=== PATIENT | male | born 1950 | race Caucasian/White ===

== ENCOUNTER 2020-05-28 12:58 | Outpatient (CLI) | payer MEDICARE, SELFPAY ==
[2020-05-28 13:45] LABS: Hemoglobin A1C 7.8 % (<5.7)
== END 2020-05-28 12:59 | disposition home or self-care (01) ==
LOC: CHSLAB 13:00
PROVIDERS: PCP Family Medicine; Visit Provider Family Medicine
DX: E11.9 Type 2 diabetes mellitus without complications (principal)
CPT/HCPCS: 36415; 83036

== ENCOUNTER 2020-08-26 12:48 | Outpatient (CLI) | payer MEDICARE, SELFPAY ==
[2020-08-26 13:06] LABS: Hemoglobin A1C 6.1 % (<5.7)
== END 2020-08-26 12:49 | disposition home or self-care (01) ==
LOC: CHSLAB 12:50
PROVIDERS: PCP Family Medicine; Visit Provider Family Medicine
DX: E11.9 Type 2 diabetes mellitus without complications (principal)
CPT/HCPCS: 36415; 83036

== ENCOUNTER 2020-11-26 07:11 | Emergency (ER) | payer MEDICARE, SELFPAY ==
[2020-11-26] VITALS (28 sets, daily range): BP systolic 136–179; BP diastolic 78–103; PULSE 91–108; RESP 14–18; TEMP 36.6; O2SAT 88–99
--- NOTE | ~2020-11-26 | CT_ITS ---
EXAMINATION: CT abdomen pelvis wo con DATE: 11/26/2020 10:14 INDICATION: Generalized abdominal pain. Vomiting. Nausea. TECHNIQUE: Computed tomography (CT) of the abdomen and pelvis was performed without intravenous contr ast. Automated exposure control and iterative reconstruction technique were employed. The dose-length product was 1220.54 mGy-cm. COMPARISON: None. FINDINGS: The visualized portions of the lung bases demonstrate mild atelectasis. There is mild emphy sema. No pleural effusion. The heart size is normal. No pericardial effusion. There is a 5 mm cyst in the liver. There is a gallstone in the gallbladder, which is normal in size. Calcifications in the s pleen are consistent with old granulomatous disease. There is fat stranding and trace fluid around th e pancreas, consistent with pancreatitis. Right adrenal gland is normal. There is a 3.2 cm mass in le ft adrenal gland measuring low-attenuation, consistent with an adenoma. There are cysts in the kidney s measuring up to 2.5 cm on the right. There is cortical thinning of the kidneys. The prostate is mil dly enlarged. There is diverticulosis of the colon without evidence of diverticulitis. There are no d ilated loops of bowel. The appendix is normal. There are no pathologically enlarged lymph nodes. Ther e is mild thoracolumbar spondylosis. IMPRESSION: 1. Acute interstitial pancreatitis. 2. Cholelithiasis. Reviewed, dictated and finalized at location A. GENCY MEDICINE SPECIALIST
[2020-11-26] MEDS: ONDANSETRON INJ 4 MG/2 ML VIAL IV PUSH (07:54)
[2020-11-26] MEDS: HYDROmorphone HCL INJ (*CRX) 2 MG/ML VIAL 1 MG IV PUSH (07:55)
[2020-11-26 08:42] LABS: Basophils Absolute Auto 0.05 K/mm3 (0.00-0.10); Basophils Percent Auto 0.4 % (0.0-1.0); Eosinophils Absolute Auto 0.54 K/mm3 (0.02-0.50); Eosinophils Percent Auto 3.9 % (1.0-6.0); Hematocrit 39.3 % (37.0-46.0); Hemoglobin 12.7 g/dL (12.4-15.3); Immature Granulocyte Percent A 0.7 % (0.0-0.0); Lymphocytes Percent Auto 5.8 % (18.0-42.0); Mean Corpuscular HGB Conc 32.3 g/dL (32.0-36.0); Mean Corpuscular Hemoglobin 30.8 pg (27.0-31.0); Mean Corpuscular Volume 95.4 fL (78.0-102.0); Monocytes Absolute Auto 0.59 K/mm3 (0.10-0.90); Monocytes Percent Auto 4.3 % (2.0-11.0); Neutrophils Absolute Auto 11.7 K/mm3 (1.7-7.2); Neutrophils Percent Auto 84.9 % (50.0-70.0); Platelet Count Result 242 K/mm3 (150-420); Red Blood Count 4.12 M/mm3 (4.70-6.10); Red Cell Distribution Width 13.8 % (11.6-14.4); White Blood Count 13.8 K/mm3 (4.8-10.8)
[2020-11-26 08:57] LABS: Alanine Aminotransferase 19 U/L (16-63); Albumin Level 3.1 g/dL (3.4-5.0); Alkaline Phosphatase 56 U/L (46-116); Anion Gap 7 mmol/L (8-16); Aspartate Amino Transferase 12 U/L (15-37); Bilirubin,Total 0.3 mg/dL (0.00-1.00); Blood Urea Nitrogen 32 mg/dL (7-18); Calcium 8.6 mg/dL (8.5-10.1); Carbon Dioxide 27 mmol/L (21-32); Chloride 107 mmol/L (98-108); Estimated CRCL calculation 22 ml/min; Estimated Glomerular Filt Rate 17; Glucose 150 mg/dL (70-99); Osmolality Calculated 301 mOsm/kg (285-295); Potassium 4.5 mmol/L (3.5-5.1); Sodium 141 mmol/L (136-145); Total Protein 6.4 g/dL (6.4-8.2)
[2020-11-26 09:03] LABS: CRP 1.4 mg/dL (0.0-0.9)
[2020-11-26 09:26] LABS: Lipase 18416 U/L (73-393)
[2020-11-26 09:43] LABS: Erythrocyte Sedimentation Rate 33 mm/hr (0-20)
[2020-11-26 10:17] LABS: BNP 143 pg/mL (0-100)
[2020-11-26] MEDS: SODIUM CHLORIDE 0.9% IV 1,000 ML 500 ML IV CONT (10:32)
--- NOTE | 2020-11-26 11:42 | PC.NURSE ---
NO CHANGE IN PT STATUS. PT REQUESTING TRANSFER TO [facility].
[2020-11-26 11:47] LABS: SARS-CoV-2 Ag Negative (Negative)
--- NOTE | 2020-11-26 11:57 | PC.NURSE ---
spouse to nurses station requesting pt be transferred [facility].
--- NOTE | 2020-11-26 12:02 | PC.NURSE ---
[facility] contacted for transfer.
--- NOTE | 2020-11-26 12:32 | ED.ABDPAIN ---
HPI - Abdominal Pain General Chief Complaint: Abdominal Pain Stated Complaint: abd pain vomitting Time Seen by Provider: 11/26/20 07:20 Source: patient Mode of arrival: ambulatory Limitations: no limitations History of Present Illness HPI narrative: Patient says he has abd abdominal pain, moderately severe since 2am. THis has been associated with nausea. He comes in now because of continuing pain, and nausea, both which seem to becoming worse. MD elicited complaint: abdominal pain Pain Consistency: constant Location: periumbilical Severity: moderate Quality: stabbing Migration to: no migration Exacerbating factors: nothing Relieving factors: nothing Associated symptoms: denies other symptoms Related Data Home Medications Medication Instructions Recorded Confirmed allopurinol 100 mg tablet 100 mg PO BID 11/27/19 11/26/20 fenofibrate nanocrystallized 145 145 mg PO DAILY 11/27/19 11/26/20 mg tablet niacin 500 mg tablet 1,000 mg PO DAILY 11/27/19 11/26/20 aspirin 325 mg tablet 325 mg PO DAILY 08/26/20 11/26/20 lansoprazole 15 mg capsule,delayed 15 mg PO DAILY 08/26/20 11/26/20 release metformin 1,000 mg tablet 1,000 mg PO BID 08/26/20 11/26/20 Lactobacillus rhamnosus GG 2 cap PO DAILY 11/26/20 11/26/20 [Culturelle] carvedilol 12.5 mg PO BID 11/26/20 11/26/20 glipizide 10 mg PO DAILY 11/26/20 11/26/20 losartan 75 mg PO DAILY 11/26/20 11/26/20 omega-3 fatty acids-vitamin E 1 cap PO DAILY 11/26/20 11/26/20 [Fish Oil] vitamin E mixed [Natural Vitamin E] 400 unit PO DAILY 11/26/20 11/26/20 Allergies Allergy/AdvReac Type Severity Reaction Status Date / Time No Known Allergies Allergy Verified 11/26/20 14:32 Review of Systems Constitutional: Constitutional: Reports no additional constitutional complaints Eyes: Eyes: Reports no additional eye complaints ENT: Reports system reviewed and no additional complaints, except as documented Cardiovascular: Cardiovascular: Reports no additional cardiovascular complaints Respiratory: Respiratory: Reports no additional respiratory complaints Gastrointestinal: Gastrointestinal: Reports no additional gastrointestinal complaints Genitourinary: Genitourinary: Reports no additional male genitourinary complaints Musculoskeletal: Musculoskeletal: Reports no additional musculoskeletal complaints Integumentary/Breasts: Skin/Breast: Reports system reviewed and no additional complaints, except as docu Neurologic: Reports system reviewed and no additional complaints, except as documented Psychiatric: Psychiatric: Reports no additional psychiatric complaints Endocrine: Endocrine: Reports no additional endocrine complaints Hematologic/Lymphatic: Hematologic/Lymphatic: Reports no additional hematologic/lymphatic complaints Allergic/Immunologic: Allergic/Immunologic: Reports no additional allergic/immunologic complaints PMFSH Past Medical History Medical History Adenoma of left adrenal gland 3.2 cm mass of the left adrenal gland consistent with adenoma noted on CT of the abdomen and pelvis on 11/26/2020. Benign mass of right adrenal gland Status post resection in March 2001. Chronic kidney disease, stage 4 (severe) He is a patient of Dr. Mckeon in [place]. Gastroesophageal reflux disease Gout Hyperlipidemia Hypertension Right adrenal mass Resection March 2001 Type 2 diabetes mellitus Surgical History Surgical History History of total adrenalectomy (~03/2001) Right adrenal gland resection with benign pathology. History of ventral hernia repair (~10/2006) Family History Family History Mother Small intestine cancer Father Colon cancer Social History Social History Social History: The patient lives in [place]. Retired. He is and he and his have 3 joseph
--- NOTE | 2020-11-26 12:44 | PC.NURSE ---
Pt to go to [facility] room 247.
== END 2020-11-26 13:40 | disposition short-term general hospital (02) ==
PROVIDERS: Emergency Provider Emergency Medicine; PCP Family Medicine
DX: K85.00 Idiopathic acute pancreatitis without necrosis or infection (principal); E78.5 Hyperlipidemia, unspecified; I10 Essential (primary) hypertension; E11.9 Type 2 diabetes mellitus without complications; Z87.891 Personal history of nicotine dependence
CPT/HCPCS: 36415; 74176; 80053; 83690; 83880; 85025; 85652; 86140; 87426; 96361; 96374; 96375; 99285; C9803; J1170; J2405; J7030

== ENCOUNTER 2020-11-26 14:10 | Inpatient (IN) | payer MEDICARE, SELFPAY ==
--- NOTE | ~2020-11-26 | XR_ITS ---
EXAMINATION: XR chest 1V portable EXAM DATE: 12/02/2020 05:33 INDICATION: Respiratory failure. TECHNIQUE: Portable AP frontal chest x-ray was obtained. Comparison is made to prior examination from 12/01/2020. FINDINGS: Endotracheal tube tip is 4-5 centimeters above the birgit. There is a nasogastric tube see n with tip collimated off the study, but below the left hemidiaphragm. Hazy appearance to the lower lung zones could indicate layering pleural effusions right greater than left, with adjacent atelectasis. Superimposed edema or pneumonia also possible. There is no pneumotho rax suspected. The cardiomediastinal silhouette is prominent but magnified on this AP technique. Ther e are no osseous abnormalities identified. IMPRESSION: 1. Tubes in position. 2. Hazy lung zone opacity likely layering pleural effusions, adjacent atelectasis. 3. Pneumonia or edema not excludable. Reviewed, dictated and finalized at location A. NT DIRECTOR IMPRESSION: 1. Tubes in position. 2. Hazy lung zone opacity likely layering pleural effusions, adjacent atelecta sis. 3. Pneumonia or edema not excludable.
--- NOTE | ~2020-11-26 | XR_ITS ---
EXAMINATION: XR chest 1V portable DATE: 11/26/2020 17:21 INDICATION: Hypoxia. Hypertension. TECHNIQUE: frontal view of the chest was obtained. COMPARISON: Chest radiograph dated 12/29/2016 FINDINGS: Intensity is mild eventration along the right hemidiaphragm. Focal airspace opacity medial right lung base. Calcified nodules at the left apex consistent with old granulomatous disease. No other airspac e opacities, pulmonary edema, pleural effusion or pneumothorax. The cardiomediastinal silhouette is n ormal. There are bridging osteophytes at multiple levels in the spine, consistent with diffuse idiopa thic skeletal hyperostosis (DISH). IMPRESSION: 1. Focal airspace opacity medial right lung base which could represent atelectasis or pneumonia. Reviewed, dictated and finalized at location A. NGUAL ADMINISTRATIVE ASSISTANT IMPRESSION: 1. Focal airspace opacity medial right lung base which could represent atelecta sis or pneumonia.
--- NOTE | ~2020-11-26 | XR_ITS ---
EXAMINATION: XR chest ET placement INDICATION: Endotracheal and nasogastric tube insertion TECHNIQUE: Portable AP chest at 1146 hours COMPARISON: 09/26/2021 FINDINGS: An endotracheal tube has been inserted which ends 3.8 cm above the birgit. A nasogastric tu be has been inserted which is followed as far as the stomach. Its tip is beyond the inferior margin o f the radiograph. There are diffuse airspace opacities throughout the lungs with interval worsening in the right perihilar region. Cardiomegaly is noted. There is no pleural effusion or pneumothorax. IMPRESSION: 1. Diffuse lung disease with interval worsening, consistent with pneumonia and/or pulmonary edema. 2. Cardiomegaly. 3. Endotracheal and nasogastric tubes inserted in adequate position. Reviewed, dictated and finalized at location A. OMER COMPLAINT SERVICE SUPERVISOR IMPRESSION: 1. Diffuse lung disease with interval worsening, consistent with pneumonia and/ or pulmonary edema. 2. Cardiomegaly. 3. Endotracheal and nasogastric tubes inserted in adequate position.
--- NOTE | ~2020-11-26 | US_ITS ---
EXAMINATION: US venous doppler [facility] DATE: 11/29/2020 15:15 INDICATION: Lower limb swelling TECHNIQUE: Gill scale images without and with compression and Doppler images of the bilateral lower e xtremity veins were obtained. COMPARISON: None FINDINGS: The right common femoral vein, profunda femoral vein, femoral vein, popliteal vein, peroneal trunk, p osterior tibial veins, and greater saphenous vein are patent. The left common femoral vein, profunda femoral vein, femoral vein, popliteal vein, peroneal trunk, po sterior tibial veins, and greater saphenous vein are patent. Evaluation of the left calf veins is clayton ewhat limited due to patient positioning and sedation. IMPRESSION: 1. Patent bilateral lower extremity veins. No evidence of deep venous thrombosis. Reviewed, dictated and finalized at location A. OPEDICALLY IMPAIRED TEACHER IMPRESSION: 1. Patent bilateral lower extremity veins. No evidence of deep venous thrombosi s.
--- NOTE | ~2020-11-26 | CT_ITS ---
EXAMINATION: CT brain wo con EXAM DATE: 11/29/2020 13:01 INDICATION: Altered mental status. TECHNIQUE: Spiral CT of the head was performed without contrast. Axial, coronal and sagittal images were reviewed. The dose-length product (DLP) for this examination was 605.33 mGy-cm. The exposure w as tailored according to patient size, and iterative reconstruction (ASIR) was used as additional dos e reduction technique. There is no prior study for comparison. FINDINGS: There is no acute intraparenchymal hemorrhage. No evidence of intraparenchymal brain mass lesion. No evidence of acute infarction. Please note that initial head CT has limited sensitivity f or small or acute infarctions. There is mild periventricular and subcortical hypodensity, nonspecific but probably related to small vessel ischemic disease. There is mild prominence of the sulci and v entricles related to cerebral atrophy. There is intracranial carotid arteriosclerosis. There are n o extra-axial collections. There is no mass effect or midline shift. The orbits are unremarkable. Soft tissue is unremarkable. Moderate ethmoid mucoperiosteal thickening. Trace fluid in the maxillar y sinuses. IMPRESSION: 1. No acute intracranial findings. 2. Chronic age related findings. 3. Moderate ethmoid mucoperiosteal thickening. Reviewed, dictated and finalized at location B. LAPPER
--- NOTE | ~2020-11-26 | US_ITS ---
EXAMINATION: US renal BI DATE: 11/27/2020 11:23 INDICATION: Worsening renal function. TECHNIQUE: Multiple ultrasound grayscale images of the kidneys were obtained. COMPARISON: CT abdomen and pelvis 11/26/2020 FINDINGS: The right kidney measures 9.7 x 6.5 x 6.8 cm. The left kidney measures 10.4 x 6.0 x 6.8 cm. The kidne ys demonstrate increased parenchymal echogenicity. There are poorly visualized cysts in the kidneys m easuring up to 2.6 cm on the right. There is no hydronephrosis. The bladder is decompressed. IMPRESSION: 1. Increased renal parenchymal echogenicity, consistent with nonspecific nephropathy. No hydronephro sis. Reviewed, dictated and finalized at location A. LEAD IMPRESSION: 1. Increased renal parenchymal echogenicity, consistent with nonspecific nephr opathy. No hydronephrosis.
--- NOTE | ~2020-11-26 | XR_ITS ---
EXAMINATION: XR abdomen NG/feed tube insert DATE: 11/29/2020 12:13 INDICATION: Nasogastric tube placement. TECHNIQUE: A supine view of the abdomen was obtained. COMPARISON: CT abdomen and pelvis 11/26/2020 FINDINGS: The lower abdomen and right lateral aspect of the abdomen are excluded. The nasogastric tub e tip is in the stomach. IMPRESSION: 1. Nasogastric tube tip in the stomach. Reviewed, dictated and finalized at location A. FIRM CONSULTANT
--- NOTE | ~2020-11-26 | XR_ITS ---
XR chest 1V portable 12/01/2020 06:12 Indication: Respiratory failure Procedure: AP portable chest Comparison: Comparison to multiple prior studies sequentially, with oldest reviewed study dated 12/29. Findings: Endotracheal tube tip 4.5 cm above the birgit. NG tube in the stomach. Borderline heart siz e. Bilateral perihilar airspace disease. There is a left pleural effusion. No pneumothorax. Impression: 1: Bilateral perihilar airspace disease which may represent edema or pneumonia. 2: Left pleural effusion. Reviewed, dictated and finalized at location A. RAL RESOURCES FACULTY MEMBER Impression: 1: Bilateral perihilar airspace disease which may represent edema or pneumonia. 2: Left pleural effusion.
--- NOTE | ~2020-11-26 | CT_ITS ---
EXAMINATION: CT chest abdomen pelvis wo con EXAM DATE: 11/29/2020 13:02 INDICATION: Sepsis, altered mental status. TECHNIQUE: Spiral CT of the chest, abdomen and pelvis was performed without contrast. Axial, posadas l and sagittal images were reviewed. Coronal maximum intensity pixel images of chest reviewed. The dose-length product (DLP) for this examination was 1910.98 mGy-cm. The exposure was tailored accordi ng to patient size (auto mA exposure control), and iterative reconstruction (ASIR) was used as additi onal dose reduction technique. Comparison is made to prior examination from 11/26/2020. FINDINGS: CHEST: Endotracheal and nasogastric tubes are in position. There are small bilateral pleural effusi ons. There is subsegmental bibasilar atelectasis, pneumonia not excludable. Some regions of interlobu lar septal thickening suspicious for mild pulmonary edema. Tracheobronchial tree is patent. There is no mediastinal, hilar or axillary lymphadenopathy. There is no pneumothorax. Heart normal in s ize. There is mild coronary arterial calcification, arterial sclerosis. ABDOMEN PELVIS: Again there is moderate amount of peripancreatic inflammation consistent with acute p ancreatitis. Development of trace perihepatic ascites and also some edema of the gallbladder wall lik delphine reactive. There is cholelithiasis. Amount gallbladder distention is unchanged. There is no nephr olithiasis or hydronephrosis. The prostate is unremarkable. The bladder is collapsed with Sandoval ca theter balloon anchor inside. There is no retroperitoneal or pelvic lymphadenopathy. There is mild scattered arteriosclerotic disease. The appendix is normal. The stomach and small bowel are unremarkable. There is mild sigmoid colonic diverticulosis. There is no adjacent inflammatory change to suggest diverticulitis. There is expecte d amount of colonic stool. No free intraperitoneal gas. There are no osteoblastic or osteolytic l esions identified. There is a right common femoral venous line. Compared to prior study, the pleural effusions and adjacent airspace disease most likely atelectasis have developed. The trace perihepatic fluid and indistinct gallbladder wall has also developed. IMPRESSION: 1. Development of small pleural effusions, adjacent subsegmental atelectasis. Suspect mild pulmonar y edema. Pneumonia not excludable. 2. Moderate peripancreatic inflammation, acute pancreatitis. Development of trace perihepatic ascite s and indistinct gallbladder wall probably reactive. 3. Mild sigmoid diverticulosis. 4. Tubes, line in position. Reviewed, dictated and finalized at location B. K PICKLER IMPRESSION: 1. Development of small pleural effusions, adjacent subsegmental atelectasis. Suspect mild pulmonary edema. Pneumonia not excludable. 2. Moderate peripancreatic inflammation, acute pancreatitis. Development of tr mary perihepatic ascites and indistinct gallbladder wall probably reactive. 3. Mild sigmoid diverticulosis. 4. Tubes, line in position.
--- NOTE | ~2020-11-26 | XR_ITS ---
XR chest 1V portable 11/30/2020 05:56 Indication: Respiratory failure Procedure: AP portable chest Comparison: 12/17/2015 Findings: The tracheal tube tip 5.9 cm above the birgit. Cardiomegaly. Mild interstitial edema. No si gnificant effusion or pneumothorax. Impression: 1: Cardiomegaly with mild interstitial edema, improved. Differential diagnosis includes pneumonia. Reviewed, dictated and finalized at location A. ET ASSEMBLER Impression: 1: Cardiomegaly with mild interstitial edema, improved. Differential diagnosis includes pneumonia.
--- NOTE | 2020-11-26 14:15 | ADMGEN ---
This patient, Thomas Rich, was admitted to Medical Room 247-. Patient/family oriented to hospital policies and general routines including ID bracelet, bed and alarms, visiting hours, pain management, procedures, bathroom and other care routines, personal items, smoking policy, room service/diet, and visiting hours. Information on how to activate the Rapid Response Team has been discussed. Patient/Family are encouraged to report perceived risks to care and to ask questions if they do not understand what they are told or what they should do.
[2020-11-26 15:07] VITALS: BP 172/87; PULSE 116; RESP 23; TEMP 36.5; O2SAT 98; BMI 32.8
[2020-11-26 15:38] VITALS: O2SAT 98
--- NOTE | 2020-11-26 16:30 | PM.IMHP ---
H&P: HPI History of Present Illness Date/Time: 11/26/20 16:30 Chief Complaint: Acute pancreatitis. Narrative: This is a 70-year-old male with type 2 diabetes mellitus, hypertension, dyslipidemia, and chronic kidney disease who is being directly admitted to the hospitalist service from the emergency department at the [facility] for further treatment and evaluation after he was found to have acute pancreatitis. Yesterday he ?had a hard time getting comfortable? with generalized abdominal discomfort followed by nausea, emesis x3, and dry heaves throughout the night. He was wakened from sleep at around 02:00 with severe pain in the periumbilical region which radiates somewhat into the left upper quadrant. It has been constant since the outset and seems to be worse with movement. He has not noticed any significant alleviating factors. As mentioned, a CT done at the outside facility showed acute interstitial pancreatitis and with further questioning he denies personal and family history of pancreatitis. Cholelithiasis was noted on imaging as well however he has no history of symptomatic gallstones. He consumes alcohol very rarely and on social occasions, and the last time he drank was maybe 1 beer a month or 2 ago. He has a history of dyslipidemia and to his knowledge he has never had any significant elevation in his triglycerides. Of note he was having difficulties controlling his blood pressures recently and was started on losartan 50 mg about 1 month ago which was recently up to 75 mg as his systolic blood pressures have been running in the 170s. At the time my evaluation he complains of continued pain, nausea, and frequent belching. He takes lansoprazole daily for chronic GERD and he has not noticed a change in those symptoms. No fever, chills, or sweats. He denies hematemesis. No melena or hematochezia. He had a normal bowel movement x2 this morning. Review of Systems Review of Systems: Narrative: Twelve systems were reviewed with pertinent positives and negatives as per HPI. Over the last week or so he has had some sinus congestion and runny nose. Mild cough which he attributes to the congestion and postnasal drip. Denies shortness of breath. No concerns for sleep apnea. No fever. No known exposure to those positive for COVID-19. Rapid COVID test was negative at outside facility today. He has noticed darker urine and decreased urine output over the past couple of days. His diabetes is well controlled with a recent hemoglobin A1c of 6.1% about 3 months ago. His fasting glucose is usually between 98 and 125. No blurry vision, polydipsia, or polyuria. Except as documented, all other systems were reviewed and are negative. PENDING SALE TO [facility] Past Medical History Medical History (Updated 11/26/20 @ 20:00 by Gaby Mead PA-C) Adenoma of left adrenal gland 3.2 cm mass of the left adrenal gland consistent with adenoma noted on CT of the abdomen and pelvis on 11/26/2020. Benign mass of right adrenal gland Status post resection in March 2001. Chronic kidney disease, stage 4 (severe) He is a patient of Dr. Mckeon in [place]. Gastroesophageal reflux disease Gout Hyperlipidemia Hypertension Right adrenal mass Resection March 2001 Type 2 diabetes mellitus Surgical History Surgical History (Updated 11/26/20 @ 19:59 by Gaby Mead PA-C) History of total adrenalectomy (~03/2001) Right adrenal gland resection with benign pathology. History of ventral hernia repair (~10/2006) Family History Family History Mother Small intestine cancer Father Colon cancer Social History Social History (Updated 11/26/20 @ 20:01 by Gaby Mead PA-C) Social History: The patient lives in [place]. Retired. He is and he and his have 3 adult sons. He was a has a 60 pack year smoking history and quit several years ago. No alcohol or illicit substance abuse
[2020-11-26 16:52] LABS: Triglycerides 282 mg/dL (<150)
[2020-11-26 16:53] LABS: Hemoglobin A1C 5.7 % (<5.7)
[2020-11-26] MEDS: MORPHINE SULFATE (*CRX) 2 MG/ML INJ IV PUSH (17:05)
[2020-11-26] MEDS: ONDANSETRON INJ 4 MG/2 ML VIAL IV PUSH ×2 (17:06→22:45)
[2020-11-26] MEDS: SODIUM CHLORIDE 0.9% IV 1,000 ML 150 ML IV CONT ×2 (17:06→23:47)
[2020-11-26 17:42] LABS: Glucose Point of Care 98 (65-105)
[2020-11-26 21:57] VITALS: PULSE 110
[2020-11-26] MEDS: allopurinoL 100 MG TABLET PO (21:57)
[2020-11-26] MEDS: carvediloL 12.5 MG TABLET PO (21:57)
[2020-11-26] MEDS: FAMOTIDINE 20 MG/2 ML VIAL IV PUSH (21:58)
[2020-11-26] MEDS: HYDROmorphone HCL INJ (*CRX) 1 MG/ML SYR 0.5 MG IV PUSH (21:58)
[2020-11-26 22:00] VITALS: BP 161/107; PULSE 125; RESP 16; TEMP 36.6; O2SAT 90
[2020-11-26 23:00] VITALS: BP 148/73; PULSE 112; RESP 20; TEMP 36.7; O2SAT 90
[2020-11-27] VITALS (7 sets, daily range): BP systolic 123–156; BP diastolic 68–87; PULSE 78–111; RESP 18; TEMP 36.5–36.6; O2SAT 88–97
[2020-11-27 00:06] LABS: Glucose Point of Care 85 (65-105)
[2020-11-27] MEDS: HYDROmorphone HCL INJ (*CRX) 1 MG/ML SYR 0.5 MG IV PUSH (02:35)
[2020-11-27 05:52] LABS: Basophils Absolute Auto 0.1 K/mm3 (0.0-0.1); Basophils Percent Auto 0.3 % (0.2-1.2); Eosinophils Percent Auto 0.3 % (0-4.4); Hematocrit 39.6 % (42.0-52.0); Hemoglobin 12.2 g/dL (14.0-18.0); Immature Granulocyte Absolute 0.16 K/mm3 (0.00-0.031); Immature Granulocyte Percent A 1.1 % (0-0.5); Lymphocytes Absolute Auto 0.37 K/mm3 (0.9-3.2); Lymphocytes Percent Auto 2.5 % (18.3-44.2); Mean Corpuscular HGB Conc 30.8 g/dl (32-36); Mean Corpuscular Hemoglobin 30.8 pg (26-34); Mean Platelet Volume 9.9 fl (7.4-10.4); Monocytes Percent Auto 6.9 % (2.6-8.5); Neutrophils Percent Auto 88.9 % (45.5-73.1); Platelet Count Result 191 k/mm3 (150-375); Red Blood Count 3.96 M/mm3 (4.6-6.20); White Blood Count 14.6 K/mm3 (4.5-10.0)
[2020-11-27 06:06] LABS: Alanine Aminotransferase 15 U/L (4-50); Albumin Level 3.3 g/dL (3.5-5.1); Alkaline Phosphatase 47 U/L (38-126); Anion Gap 6 mmol/L (8-16); Aspartate Amino Transferase 28 U/L (17-59); Bilirubin,Total 0.5 mg/dL (0.2-1.3); Blood Urea Nitrogen 46 mg/dL (9-20); Calcium 8.1 mg/dL (8.4-10.2); Carbon Dioxide 23 mmol/L (22-30); Chloride 113 mmol/L (98-107); Estimated CRCL calculation 16 ml/min; Estimated Glomerular Filt Rate 12; Glucose 81 mg/dL (75-110); Magnesium 1.6 mg/dL (1.6-2.3); Potassium 5.4 mmol/L (3.4-5.0); Sodium 142 mmol/L (137-145)
[2020-11-27 06:29] LABS: Lipase 3190 U/L (23-300)
[2020-11-27 07:26] LABS: Glucose Point of Care 73 (65-105)
[2020-11-27 07:26] LABS: Glucose Point of Care 78 (65-105)
[2020-11-27 08:13] LABS: Glucose Point of Care 76 (65-105)
[2020-11-27] MEDS: MAGNESIUM SULF 2 GM/WATER 50ML 2 GM/50 ML BAG IVPB (08:28)
[2020-11-27] MEDS: DEXTROSE 5%/0.9% SOD CHL 1,000 ML 125 ML IV CONT (08:28)
[2020-11-27] MEDS: allopurinoL 100 MG TABLET PO ×2 (08:29→21:47)
[2020-11-27] MEDS: FAMOTIDINE 20 MG/2 ML VIAL IV PUSH ×2 (08:29→21:45)
[2020-11-27] MEDS: carvediloL 12.5 MG TABLET PO ×2 (08:29→21:45)
[2020-11-27] MEDS: ACIDOPHILUS/BULGARICUS CHEWABLE TABLET 2 TABLET PO (08:29)
--- NOTE | 2020-11-27 09:45 | PM.IMPN ---
Progress Note: A&P Assessment and Plan (1) Acute pancreatitis: Qualifiers: Acute pancreatitis complication: unspecified Pancreatitis type: idiopathic Qualified Code(s): K85.00 - Idiopathic acute pancreatitis without necrosis or infection Code(s): K85.90 - Acute pancreatitis without necrosis or infection, unspecified Status: Acute Assessment and Plan: Patient presented to outside hospital with abdominal pain, nausea/vomiting; CT abd/pelvis demonstrated evidence consistent with acute interstitial pancreatitis. Lipase improved nicely from 18,416 to 3,190 this morning. Continue bowel rest and ice chips for now. Recheck lipase in AM. Continue supportive care with IV hydration, pain control, antiemetics. Avoid narcotics due to lethargy. (2) Lethargy: Code(s): R53.83 - Other fatigue Status: Acute Assessment and Plan: Patient is very sleepy this morning and having trouble staying awake. Nursing describes this is a change compared to yesterday. Vitals are stable however. IV narcotics last given early this morning 0230. Suspect this could be contributing to this change in combination with his worsening renal function. Obtain ABG, ammonia level. Give narcan x 1 and monitor. Monitor renal function. Avoid narcotic medications. Monitor vitals closely. (3) Cholelithiasis: Qualifiers: Cholelithiasis location: other site Biliary obstruction: without biliary obstruction Qualified Code(s): K80.80 - Other cholelithiasis without obstruction Code(s): K80.20 - Calculus of gallbladder without cholecystitis without obstruction Status: Acute Assessment and Plan: A gallstone in the gallbladder is noted on CT. Bilirubin and LFTs are within normal limits thus biliary obstruction does not appear to be contributing at this point. (4) Acute on chronic kidney failure: Qualifiers: Acute renal failure type: unspecified Chronic kidney disease stage: unspecified stage Qualified Code(s): N17.9 - Acute kidney failure, unspecified; N18.9 - Chronic kidney disease, unspecified Code(s): N17.9 - Acute kidney failure, unspecified; N18.9 - Chronic kidney disease, unspecified Status: Acute Assessment and Plan: He is a patient of Dr Mckeon in [place]. He is not on dialysis. He is unsure what his baseline creatinine is, requested to obtain records for reference. Cr increased overnight and up to 4.9 this morning. May be related to poor oral intake at home. Obtain renal ultrasound. Appreciate nephrology input in this setting. (5) Hypertension: Qualifiers: Hypertension type: essential hypertension Qualified Code(s): I10 - Essential (primary) hypertension Code(s): I10 - Essential (primary) hypertension Status: Chronic Assessment and Plan: Some elevated BPs last evening likely secondary to pain and missed medications, now better controlled this AM last 123/68. Continue home carvedilol. Home losartan held due to renal function. He was recently taken off of amlodipine due to LE swelling and started on losartan in last 1 mo. Monitor BP and adjust treatment as needed. (6) DM2 (diabetes mellitus, type 2): Qualifiers: Diabetes mellitus long term care social worker insulin use: without long term care social worker use Diabetes mellitus complication status: without complication Qualified Code(s): E11.9 - Type 2 diabetes mellitus without complications Code(s): E11.9 - Type 2 diabetes mellitus without complications Status: Acute Assessment and Plan: Hgb A1c is 5.7%. Home metformin held due to worsening renal function. Continue to monitor with accu-cheks and adjust treatment as needed, cover with SSI. (
[2020-11-27 10:17] LABS: Ammonia < 9 umol/L (9-30)
[2020-11-27 11:04] LABS: Alveolar/Arterial O2 Gradient 68.9 mmHg; Base Excess ABG -9.3 mEq/l (+/-2.0); Carboxyhemoglobin 0.7 % THb (0-2.0); Fractional Inspired Oxygen 28 %; HCO3 ABG 19.8 mEq/l (22.0-26.0); Oxygen Content ABG 15.1 %vol (16.0-22.0); Oxyhemoglobin 87.1 % THb (90.0-100.0); PCO2 ABG 58.1 mmHg (35.0-45.0); PO2 ABG 62.2 mmHg (80.0-100.0); PO2 FiO2 Ratio Arterial Blood 2.22 %; Reduced Hemoglobin 12.2 %THb (0-5.0); Total Hemoglobin 12.3 g/dL (12.0-18.0)
[2020-11-27 11:06] LABS: pH ABG 7.151 (7.350-7.450)
[2020-11-27 11:07] LABS: Device NASAL CANNULA; Modified Allen's Test Pass; Oxygen Saturation ABG 84.3 % (95.0-100.0); Site Drawn LEFT RADIAL
[2020-11-27] MEDS: NALOXONE HCL 0.4 MG/ML VIAL IV PUSH (11:28)
[2020-11-27 11:44] LABS: Glucose Point of Care 85 (65-105)
[2020-11-27 15:41] LABS: Alanine Aminotransferase 17 U/L (4-50); Albumin Level 3.4 g/dL (3.5-5.1); Alkaline Phosphatase 46 U/L (38-126); Anion Gap 8 mmol/L (8-16); Aspartate Amino Transferase 30 U/L (17-59); Bilirubin,Total 0.6 mg/dL (0.2-1.3); Blood Urea Nitrogen 52 mg/dL (9-20); Calcium 8.5 mg/dL (8.4-10.2); Carbon Dioxide 20 mmol/L (22-30); Chloride 111 mmol/L (98-107); Estimated CRCL calculation 14 ml/min; Estimated Glomerular Filt Rate 10; Glucose 115 mg/dL (75-110); Magnesium 2.1 mg/dL (1.6-2.3); Potassium 5.3 mmol/L (3.4-5.0); Sodium 139 mmol/L (137-145)
[2020-11-27 15:54] LABS: Alveolar/Arterial O2 Gradient 6.3 mmHg; Base Excess ABG -9.4 mEq/l (+/-2.0); Carboxyhemoglobin 0.6 % THb (0-2.0); Fractional Inspired Oxygen 21 %; HCO3 ABG 18.1 mEq/l (22.0-26.0); Methemoglobin ABG 0.3 %THb (0-1.5); Oxygen Content ABG 15.7 %vol (16.0-22.0); Oxygen Saturation ABG 94.9 % (95.0-100.0); PCO2 ABG 45.8 mmHg (35.0-45.0); PO2 ABG 88.6 mmHg (80.0-100.0); PO2 FiO2 Ratio Arterial Blood 4.22 %; Reduced Hemoglobin 5.1 %THb (0-5.0); Total Hemoglobin 11.8 g/dL (12.0-18.0)
[2020-11-27 15:56] LABS: Device ROOM AIR; Modified Allen's Test Pass; Site Drawn RIGHT RADIAL; pH ABG 7.214 (7.350-7.450)
[2020-11-27] MEDS: LACTATED RINGERS 1,000 ML 999 ML IV CONT (16:04)
[2020-11-27 17:12] LABS: Add Urine Microscopic? YES; Amorphous Sediment Urine Few; Appearance Urine Cloudy (Clear); Bacteria Urine 2+ /hpf; Bilirubin Urine Negative (Negative); Blood Urine 2+ (Negative); Color Urine Yellow (Yellow); Glucose Urine UA 1+ mg/dL (Negative); Ketones Urine Negative (Negative); Leukocyte Esterase Ur Negative LEU/UL (Negative); Mucus Urine Rare /lpf; Nitrate Urine Negative (Negative); Protein Urine 3+ mg/dL (Negative); Specific Grav Ur 1.018 (1.001-1.035); Urobilinogen Urine Negative mg/dL (<2.0); WBC Urine 21-30 /hpf
[2020-11-27 17:27] LABS: Glucose Point of Care 103 (65-105)
[2020-11-27] MEDS: LACTATED RINGERS 1,000 ML 125 ML IV CONT (17:30)
[2020-11-27 17:54] LABS: Lactic Acid Reflex 0.6 mmol/L (0.7-2.1)
--- NOTE | 2020-11-27 18:08 | P.CONNP_ITS ---
Assessment and Plan Assessment and plan (1) MARNI (acute kidney injury): Code(s): N17.9 - Acute kidney failure, unspecified Status: Acute Assessment and Plan: * as noted by trend of labs in the last 24 hours * suspect prerenal factors and pancreatitis to blame * concerning that his UOP has dropped off * follow trend of repeat labs and UOP * check urine lytes and eosinophils as well as renal ultrasound (2) Chronic kidney disease, stage 4 (severe): Code(s): N18.4 - Chronic kidney disease, stage 4 (severe) Status: Chronic Assessment and Plan: * baseline creatinine ~ 2.2 - 2.4mg/dl * presumably due to diabetes and hypertension (3) Acute pancreatitis: Qualifiers: Acute pancreatitis complication: unspecified Pancreatitis type: idiopathic Qualified Code(s): K85.00 - Idiopathic acute pancreatitis without necrosis or infection Code(s): K85.90 - Acute pancreatitis without necrosis or infection, unspecified Status: Acute Assessment and Plan: * findings seem consistent - abdominal pain, nausea/vomiting and results of CT abd/pelvis * lipase better but still quite elevated * supportive therapy with bowel rest and NPO status. * IV hydration * pain control (4) Lethargy: Code(s): R53.83 - Other fatigue Status: Acute Assessment and Plan: * due to pain medications versus MARNI/ARF versus both? * follow trend of mentation * consider head CT is continue to decline or worsens (5) Hypertension: Qualifiers: Hypertension type: essential hypertension Qualified Code(s): I10 - Essential (primary) hypertension Code(s): I10 - Essential (primary) hypertension Status: Chronic Assessment and Plan: * relatively stable hemodynamics * follow trend (6) DM2 (diabetes mellitus, type 2): Qualifiers: Diabetes mellitus complication status: without complication Diabetes mellitus exterminator termite insulin use: without mcfp use Qualified Code(s): E11.9 - Type 2 diabetes mellitus without complications Code(s): E11.9 - Type 2 diabetes mellitus without complications Status: Acute Assessment and Plan: * follow accuchecks * on SSI Long and extensive discussion (> 20 minutes) with patient's by phone regarding his current clinical status and his worsening renal dysfunction -- I voiced my concerns that given his acute illness and declining urine output, the patient require renal replacement therapy/dialysis particularly if he runs into problems with hyperkalemia, volume overload, severe acidosis...etc. She seemed to voice understanding to this possibility. Will continue to follow. History of Present Illness Reason for Consult Consult date: 11/27/20 Reason for consult: acute renal failure (on chronic kidney disease) Chief Complaint Chief complaint: Acute pancreatitis History of Present Illness Narrative: Almost all the information I have obtained is from review of the electronic medical record as well as discussion with the nurses and physicians involved in the patient's care as I am unable to get any history from the patient due to his significant lethargy. The patient is a 70-year-old male with a past medical history as noted below who was directly admitted to [facility] from [facility] for further treatment/evaluation of acute pancreatitis. The day prior to admission the patient been having issues and problems with generalized abdominal discomfort in association with nausea and vomiting throughout the previ
--- NOTE | 2020-11-27 18:08 | PM.CNNEP ---
Assessment and Plan Assessment and plan (1) MARNI (acute kidney injury): Code(s): N17.9 - Acute kidney failure, unspecified Status: Acute Assessment and Plan: as noted by trend of labs in the last 24 hours suspect prerenal factors and pancreatitis to blame concerning that his UOP has dropped off follow trend of repeat labs and UOP check urine lytes and eosinophils as well as renal ultrasound (2) Chronic kidney disease, stage 4 (severe): Code(s): N18.4 - Chronic kidney disease, stage 4 (severe) Status: Chronic Assessment and Plan: baseline creatinine ~ 2.2 - 2.4mg/dl presumably due to diabetes and hypertension (3) Acute pancreatitis: Qualifiers: Acute pancreatitis complication: unspecified Pancreatitis type: idiopathic Qualified Code(s): K85.00 - Idiopathic acute pancreatitis without necrosis or infection Code(s): K85.90 - Acute pancreatitis without necrosis or infection, unspecified Status: Acute Assessment and Plan: findings seem consistent - abdominal pain, nausea/vomiting and results of CT abd/pelvis lipase better but still quite elevated supportive therapy with bowel rest and NPO status. IV hydration pain control (4) Lethargy: Code(s): R53.83 - Other fatigue Status: Acute Assessment and Plan: due to pain medications versus MARNI/ARF versus both? follow trend of mentation consider head CT is continue to decline or worsens (5) Hypertension: Qualifiers: Hypertension type: essential hypertension Qualified Code(s): I10 - Essential (primary) hypertension Code(s): I10 - Essential (primary) hypertension Status: Chronic Assessment and Plan: relatively stable hemodynamics follow trend (6) DM2 (diabetes mellitus, type 2): Qualifiers: Diabetes mellitus complication status: without complication Diabetes mellitus ocean transportation intermediary insulin use: without fdc use Qualified Code(s): E11.9 - Type 2 diabetes mellitus without complications Code(s): E11.9 - Type 2 diabetes mellitus without complications Status: Acute Assessment and Plan: follow accuchecks on SSI Long and extensive discussion (> 20 minutes) with patient's by phone regarding his current clinical status and his worsening renal dysfunction -- I voiced my concerns that given his acute illness and declining urine output, the patient require renal replacement therapy/dialysis particularly if he runs into problems with hyperkalemia, volume overload, severe acidosis...etc. She seemed to voice understanding to this possibility. Will continue to follow. History of Present Illness Reason for Consult Consult date: 11/27/20 Reason for consult: acute renal failure (on chronic kidney disease) Chief Complaint Chief complaint: Acute pancreatitis History of Present Illness Narrative: Almost all the information I have obtained is from review of the electronic medical record as well as discussion with the nurses and physicians involved in the patient's care as I am unable to get any history from the patient due to his significant lethargy. The patient is a 70-year-old male with a past medical history as noted below who was directly admitted to [facility] from [facility] for further treatment/evaluation of acute pancreatitis. The day prior to admission the patient been having issues and problems with generalized abdominal discomfort in association with nausea and vomiting throughout the previous night. He wakened earlier on the morning of admission with severe pain in his periumbilical area with radiation to his left upper quadrant cysts in since its onset, it has been fairly constant and seems to be worse with any type of movement. For this reason, he presented to the outside hospital emergency room for further evaluation. Workup and evaluation at [facility]
[2020-11-27] MEDS: ACETAMINOPHEN 325 MG TABLET 650 MG PO (20:22)
[2020-11-27 20:40] LABS: Glucose Point of Care 83 (65-105)
[2020-11-27 23:11] LABS: Glucose Point of Care 81 (65-105)
[2020-11-28] MEDS: LACTATED RINGERS 1,000 ML 125 ML IV CONT ×2 (01:49→09:17)
[2020-11-28 06:00] VITALS: BP 169/91; PULSE 111; RESP 18; TEMP 36.6; O2SAT 96
[2020-11-28 06:02] LABS: Glucose Point of Care 106 (65-105)
[2020-11-28 07:46] LABS: Glucose Point of Care 97 (65-105)
[2020-11-28 08:04] LABS: Basophils Percent Auto 0.3 % (0.2-1.2); Eosinophils Percent Auto 0.2 % (0-4.4); Hematocrit 35.8 % (42.0-52.0); Hemoglobin 11.5 g/dL (14.0-18.0); Immature Granulocyte Absolute 0.25 K/mm3 (0.00-0.031); Immature Granulocyte Percent A 1.8 % (0-0.5); Lymphocytes Absolute Auto 0.42 K/mm3 (0.9-3.2); Mean Corpuscular HGB Conc 32.1 g/dl (32-36); Mean Corpuscular Hemoglobin 31.1 pg (26-34); Mean Corpuscular Volume 96.8 fl (80-100); Mean Platelet Volume 10.4 fl (7.4-10.4); Monocytes Absolute Auto 0.9 K/mm3 (0.1-0.6); Monocytes Percent Auto 6.2 % (2.6-8.5); Neutrophils Absolute Auto 12.3 K/mm3 (1.3-6.7); Neutrophils Percent Auto 88.5 % (45.5-73.1); Platelet Count Result 161 k/mm3 (150-375); Red Cell Distribution Width 14.1 % (11.5-14.5); White Blood Count 13.9 K/mm3 (4.5-10.0)
[2020-11-28 08:16] LABS: Alanine Aminotransferase 18 U/L (4-50); Albumin Level 3.4 g/dL (3.5-5.1); Alkaline Phosphatase 51 U/L (38-126); Anion Gap 7 mmol/L (8-16); Aspartate Amino Transferase 32 U/L (17-59); Bilirubin,Total 0.6 mg/dL (0.2-1.3); Blood Urea Nitrogen 60 mg/dL (9-20); Calcium 8.5 mg/dL (8.4-10.2); Carbon Dioxide 20 mmol/L (22-30); Chloride 109 mmol/L (98-107); Estimated CRCL calculation 13 ml/min; Estimated Glomerular Filt Rate 9; Glucose 99 mg/dL (75-110); Lipase 988 U/L (23-300); Potassium 5.5 mmol/L (3.4-5.0); Sodium 136 mmol/L (137-145)
[2020-11-28 09:15] VITALS: PULSE 111
[2020-11-28] MEDS: carvediloL 12.5 MG TABLET PO ×2 (09:15→20:50)
[2020-11-28] MEDS: ACIDOPHILUS/BULGARICUS CHEWABLE TABLET 2 TABLET PO (09:16)
[2020-11-28] MEDS: FAMOTIDINE 20 MG/2 ML VIAL IV PUSH ×2 (09:16→20:50)
[2020-11-28] MEDS: allopurinoL 100 MG TABLET PO ×2 (09:16→20:51)
[2020-11-28 09:18] VITALS: TEMP 36.6
[2020-11-28] MEDS: ACETAMINOPHEN 325 MG TABLET 650 MG PO (09:18)
[2020-11-28 11:43] LABS: Glucose Point of Care 96 (65-105)
[2020-11-28] MEDS: SODIUM CHLORIDE 0.9% IV 1,000 ML 125 ML IV CONT (12:04)
[2020-11-28] MEDS: SODIUM POLYSTYRENE SULFONONATE 15 GM/60 ML BTL PO (12:07)
[2020-11-28 14:00] VITALS: BP 153/79; PULSE 101; RESP 12; TEMP 36.6; O2SAT 97
--- NOTE | 2020-11-28 16:29 | PM.PNNEP ---
Progress Note: A&P Assessment and Plan (1) MARNI (acute kidney injury): Code(s): N17.9 - Acute kidney failure, unspecified Status: Acute Assessment and Plan: as noted by trend of labs in the last 24 hours suspect prerenal factors and pancreatitis to blame still making urine - non-oliguric follow trend of repeat labs and UOP check urine lytes and eosinophils renal ultrasound c/w with known CKD follow K+ (2) Chronic kidney disease, stage 4 (severe): Code(s): N18.4 - Chronic kidney disease, stage 4 (severe) Status: Chronic Assessment and Plan: baseline creatinine ~ 2.2 - 2.4mg/dl presumably due to diabetes and hypertension follows with Dr. Mckeon for CKD management (3) Acute pancreatitis: Qualifiers: Acute pancreatitis complication: unspecified Pancreatitis type: idiopathic Qualified Code(s): K85.00 - Idiopathic acute pancreatitis without necrosis or infection Code(s): K85.90 - Acute pancreatitis without necrosis or infection, unspecified Status: Acute Assessment and Plan: findings seem consistent - abdominal pain, nausea/vomiting and results of CT abd/pelvis lipase better but still elevated supportive therapy with bowel rest and NPO status IV hydration pain control (4) Lethargy: Code(s): R53.83 - Other fatigue Status: Acute Assessment and Plan: due to pain medications versus MARNI/ARF versus both? doing better today follow mentation (5) Hypertension: Qualifiers: Hypertension type: essential hypertension Qualified Code(s): I10 - Essential (primary) hypertension Code(s): I10 - Essential (primary) hypertension Status: Chronic Assessment and Plan: relatively stable hemodynamics follow trend (6) DM2 (diabetes mellitus, type 2): Qualifiers: Diabetes mellitus complication status: without complication Diabetes mellitus fpc insulin use: without fpc use Qualified Code(s): E11.9 - Type 2 diabetes mellitus without complications Code(s): E11.9 - Type 2 diabetes mellitus without complications Status: Acute Assessment and Plan: follow accuchecks on SSI Will continue to follow. Subjective Date/time seen: 11/28/20 16:29 Patient seems to be more awake and lucid at the time of my visit; he does not recall any events from yesterday (including my visit with him); still not making much urine but abdominal pain is better. Exam Narrative: Exam Narrative: General: WD/WN male in NAD Heart: normal S1 and S2; no rub Lungs: clear to auscultation Abdomen: soft, mild TTP in RUQ, mild distension, positive bowel sounds Extremities: no cyanosis or clubbing; no edema Skin: warm and dry Objective Data Vital Signs Vital Signs: Vital Signs Temp Pulse Resp BP Pulse Ox 11/28/20 14:00 36.6 C 101 H 12 153/79 H 97 11/28/20 09:18 36.6 C 11/28/20 09:15 111 H 11/28/20 06:00 36.6 C 111 H 18 169/91 H 96 11/27/20 21:58 36.5 C 106 H 18 156/87 H 96 11/27/20 21:45 90 Intake/Output Intake/Output: Intake & Output 11/25/20 11/26/20 11/27/20 11/28/20 23:59 23:59 23:59 23:59 Intake Total 1000 70 3266 Output Total 0 200 900 Balance 1000 -130 2366 Meds/Results Medications: Active Medications Generic Name Dose Route Start Last Admin Trade Name Freq PRN Reason Stop Dose Admin Acetaminophen 650 mg 11/26/20 16:15 11/28/20 09:18 Acetaminophen 325 Mg Tablet PO 650 mg Q4H PRN Administration Mild Pain (1-3) or Fever Allopurinol 100 mg 11/26/20 21:00 11/28/20 09:16 Allopurinol 100 Mg Tablet PO 100 mg Q12HR GOMEZ Administration Carvedilol 12.5 mg 11/26/20 21:00 11/28/20 09:15 Carvedilol 12.5 Mg Tablet PO 12.5 mg Q12HR GOMEZ Administration Dextrose 12.5 gm 11/26/20 16:18 Dextrose 50% 25 Gm/50 Ml Syringe IV PUSH PRN PRN Hypoglycemia Protocol Famotidine 2
--- NOTE | 2020-11-28 16:29 | P.PNNP_ITS ---
Progress Note: A&P Assessment and Plan (1) MARNI (acute kidney injury): Code(s): N17.9 - Acute kidney failure, unspecified Status: Acute Assessment and Plan: * as noted by trend of labs in the last 24 hours * suspect prerenal factors and pancreatitis to blame * still making urine - non-oliguric * follow trend of repeat labs and UOP * check urine lytes and eosinophils * renal ultrasound c/w with known CKD * follow K+ (2) Chronic kidney disease, stage 4 (severe): Code(s): N18.4 - Chronic kidney disease, stage 4 (severe) Status: Chronic Assessment and Plan: * baseline creatinine ~ 2.2 - 2.4mg/dl * presumably due to diabetes and hypertension * follows with Dr. Mckeon for CKD management (3) Acute pancreatitis: Qualifiers: Acute pancreatitis complication: unspecified Pancreatitis type: idiopathic Qualified Code(s): K85.00 - Idiopathic acute pancreatitis without necrosis or infection Code(s): K85.90 - Acute pancreatitis without necrosis or infection, unspecified Status: Acute Assessment and Plan: * findings seem consistent - abdominal pain, nausea/vomiting and results of CT abd/pelvis * lipase better but still elevated * supportive therapy with bowel rest and NPO status * IV hydration * pain control (4) Lethargy: Code(s): R53.83 - Other fatigue Status: Acute Assessment and Plan: * due to pain medications versus MARNI/ARF versus both? * doing better today * follow mentation (5) Hypertension: Qualifiers: Hypertension type: essential hypertension Qualified Code(s): I10 - Essential (primary) hypertension Code(s): I10 - Essential (primary) hypertension Status: Chronic Assessment and Plan: * relatively stable hemodynamics * follow trend (6) DM2 (diabetes mellitus, type 2): Qualifiers: Diabetes mellitus complication status: without complication Diabetes mellitus intermediate school teacher insulin use: without intermediate school teacher use Qualified Code(s): E11.9 - Type 2 diabetes mellitus without complications Code(s): E11.9 - Type 2 diabetes mellitus without complications Status: Acute Assessment and Plan: * follow accuchecks * on SSI Will continue to follow. Subjective Date/time seen: 11/28/20 16:29 Patient seems to be more awake and lucid at the time of my visit; he does not recall any events from yesterday (including my visit with him); still not making much urine but abdominal pain is better. Exam Narrative: Exam Narrative: General: WD/WN male in NAD Heart: normal S1 and S2; no rub Lungs: clear to auscultation Abdomen: soft, mild TTP in RUQ, mild distension, positive bowel sounds Extremities: no cyanosis or clubbing; no edema Skin: warm and dry Objective Data Vital Signs Vital Signs: Vital Signs Temp Pulse Resp BP Pulse Ox 11/28/20 14:00 36.6 C 101 H 12 153/79 H 97 11/28/20 09:18 36.6 C 11/28/20 09:15 111 H 11/28/20 06:00 36.6 C 111 H 18 169/91 H 96 11/27/20 21:58 36.5 C 106 H 18 156/87 H 96 11/27/20 21:45 90 Intake/Output Intake/Output: Intake & Output 11/25/20 11/26/20 11/27/20 11/28/20 23:59 23:59 23:59 23:59 Intake Total 1000 70 3266 Output Total 0 200 900 Balance 1000 -130 2366 Meds/Results Medications:
[2020-11-28 16:51] LABS: Glucose Point of Care 185 (65-105)
[2020-11-28] MEDS: ONDANSETRON INJ 4 MG/2 ML VIAL IV PUSH (17:28)
--- NOTE | 2020-11-28 19:46 | PM.IMPN ---
Progress Note: A&P Assessment and Plan (1) Acute pancreatitis: Qualifiers: Acute pancreatitis complication: unspecified Pancreatitis type: idiopathic Qualified Code(s): K85.00 - Idiopathic acute pancreatitis without necrosis or infection Code(s): K85.90 - Acute pancreatitis without necrosis or infection, unspecified Status: Acute Assessment and Plan: Patient presented to outside hospital with abdominal pain, nausea/vomiting; CT abd/pelvis demonstrated evidence consistent with acute interstitial pancreatitis. Lipase improved nicely from 18,416 to 988 this morning. with improvement and flatus will start clears. Continue supportive care with IV hydration, pain control, antiemetics. Avoid narcotics due to lethargy. (2) Lethargy: Code(s): R53.83 - Other fatigue Status: Acute Assessment and Plan: Patient was very sleepy am 11/27 having trouble staying awake. Nursing describes this is a change compared to 11/26. Vitals are stable however. IV narcotics last given early 11/27 0230. Suspect this could be contributing to this change in combination with his worsening renal function. . Gave narcan x 1 with improvement. Monitor renal function. Avoid narcotic medications. Monitor vitals closely. (3) Cholelithiasis: Qualifiers: Cholelithiasis location: other site Biliary obstruction: without biliary obstruction Qualified Code(s): K80.80 - Other cholelithiasis without obstruction Code(s): K80.20 - Calculus of gallbladder without cholecystitis without obstruction Status: Acute Assessment and Plan: A gallstone in the gallbladder is noted on CT. Bilirubin and LFTs are within normal limits thus biliary obstruction does not appear to be contributing at this point. (4) Acute on chronic kidney failure: Qualifiers: Acute renal failure type: unspecified Chronic kidney disease stage: unspecified stage Qualified Code(s): N17.9 - Acute kidney failure, unspecified; N18.9 - Chronic kidney disease, unspecified Code(s): N17.9 - Acute kidney failure, unspecified; N18.9 - Chronic kidney disease, unspecified Status: Acute Assessment and Plan: He is a patient of Dr Mckeon in [place]. He is not on dialysis. He is unsure what his baseline creatinine is, requested to obtain records for reference. Cr increased overnight and up to 6.2 this morning. May be related to poor oral intake at home and prerenal azotemia renal ultrasound no obstruction and urine output picking up last 12 hours. kayexalate x1 for K 5.5 today (5) Hypertension: Qualifiers: Hypertension type: essential hypertension Qualified Code(s): I10 - Essential (primary) hypertension Code(s): I10 - Essential (primary) hypertension Status: Chronic Assessment and Plan: Some elevated BPs last evening likely secondary to pain and missed medications, now better controlled this AM last 123/68. Continue home carvedilol. Home losartan held due to renal function. He was recently taken off of amlodipine due to LE swelling and started on losartan in last 1 mo. Monitor BP and adjust treatment as needed. (6) DM2 (diabetes mellitus, type 2): Qualifiers: Diabetes mellitus computer terminal operator insulin use: without jail use Diabetes mellitus complication status: without complication Qualified Code(s): E11.9 - Type 2 diabetes mellitus without complications Code(s): E11.9 - Type 2 diabetes mellitus without complications Status: Acute Assessment and Plan: Hgb A1c is 5.7%. Home metformin held due to worsening renal function. Continue to monitor with accu-cheks and adjust treatment as needed, cover with SSI. (7
[2020-11-28 20:00] VITALS: BP 154/77; PULSE 108; RESP 22; TEMP 36.9; O2SAT 94
[2020-11-28 20:50] VITALS: PULSE 108
[2020-11-28] MEDS: ENOXAPARIN 30 MG/0.3 ML SYRINGE SUB-Q (20:50)
[2020-11-28] MEDS: SODIUM CHLORIDE 0.9% IV 1,000 ML 100 ML IV CONT (21:25)
[2020-11-28] MEDS: LORazepam INJ (*CRX) 2 MG/ML VIAL 0.5 MG IV PUSH (22:05)
[2020-11-28 22:25] LABS: Glucose Point of Care 115 (65-105)
--- NOTE | 2020-11-28 23:21 | PC.NURSE ---
Addendum entered by Ji Leon RN 11/29/20 01:35: Pt has become agitated and combative to care again, unable to re-check BP after hydralazine admin. PCT sitting at bedside with pt at this time. Addendum entered by Ji Leon RN 11/29/20 00:36: 5mg zyprexa given at 2357 for further increased agitation and combativeness. Pt had removed IV and was unsafe to leave alone for any amount of time prior to zyprexa administration. New IV access inserted and pt currently resting comfortably in bed. Original Note: Pt becoming increasingly agitated and impulsive around 1999, Valencia Parada called and informed of situation. Order for 0.5mg Ativan received. Pt became much more confused and agitated an hour after administration. Pt is confused and requiring a sitter at this time to prevent pulling at pitts/lines/leaving bed.
[2020-11-28] MEDS: OLANZapine 10 MG INJ VIAL 5 MG IM (23:57)
[2020-11-29] VITALS (21 sets, daily range): BP systolic 106–183; BP diastolic 72–146; PULSE 73–114; RESP 22–32; TEMP 36.3–36.9; O2SAT 95–100; BMI 34.1
--- NOTE | 2020-11-29 | ECHO_ITS ---
Patient Info Name: Thomas Rich Age: 70 years : 1950 Gender: Male Ht: 71 in Wt: 244 lbs BSA: 2.39 m2 HR: 80 bpm BP: 135 / 72 mmHg Heart Rhythm: Sinus Rhythm Technical Quality: Fair Exam Date: 11/29/2020 2:06 PM Exam Location: [facility] Pulmonary Patient Status: Inpatient Admit Date: 11/27/2020 Staff Ordering Physician: Christopher Weinberg MD Manager Neonatal: Collette De La Garza RDCS Attending Provider: Jemima Loomis PA-C Exam Type: CA echo dop color flow w con Study Info Indications - cardiac arrest Complete two-dimensional, color flow and Doppler transthoracic echocardiogram is performed with contrast to opacify the left ventricle and to improve the deliniation of the left ventricle endocardial borders. Contrast/Agitated Saline Contrast/Ag. Saline: Definity Amount: 2.00 ml Administered By: Fabiola Madrid, RN Summary 1. Technically difficult study with limited views. 2. Left ventricular systolic function is mildly reduced, estimated at 45-50%. There is hypokinesis of the anterolateral wall. 3. There is no increased left ventricular wall thickness. 4. The left ventricular diastolic function is grade I diastolic dysfunction. 5. There is trace mitral valve regurgitation. 6. There is trace tricuspid valve regurgitation. 7. No pulmonary hypertension, estimated pulmonary arterial systolic pressure is 34 mmHg. 8. The pericardium appears increased echogenicity of the pericardium. 9. There is small pericardial effusion. Left Ventricle Left ventricular chamber dimension is normal. Left ventricular systolic function is mildly reduced, estimated at 45-50%. There is hypokinesis of the anterolateral wall. There is no increased left ventricular wall thickness. The left ventricular diastolic function is grade I diastolic dysfunction. Technically difficult study with limited views. Right Ventricle Right ventricular chamber dimension is normal. Right ventricular systolic function is normal. Left Atria Left atrial chamber dimension is normal. Right Atria Right atrial chamber dimension is normal. Aortic Valve The aortic valve is not well visualized. There is no aortic valve stenosis. Pulmonic Valve The pulmonic valve is not well visualized. Mitral Valve The mitral valve has normal leaflets. There is trace mitral valve regurgitation. The mitral valve annulus is mildly calcified. Tricuspid Valve The tricuspid valve leaflets are not well visualized. There is trace tricuspid valve regurgitation. No pulmonary hypertension, estimated pulmonary arterial systolic pressure is 34 mmHg. Pericardium/Pleural The pericardium appears increased echogenicity of the pericardium. There is small pericardial effusion. Aorta The aortic root size at the sinus of Valsalva is normal. There is mild aortic atherosclerosis. Left Ventricular Outflow Tract Name Value Normal LVOT 2D LVOT Diameter 2.05 cm LVOT Doppler LVOT Peak Gradient 5 mmHg LVOT Mean Gradient 3 mmHg LVOT VTI 21.7
[2020-11-29] MEDS: hydrALAZINE HCL 20 MG/ML VIAL 10 MG IV PUSH ×3 (00:34→21:45)
[2020-11-29 03:15] LABS: Creatinine Urine 75.7 mg/dL
[2020-11-29 03:31] LABS: Sodium Urine Random 41 meq/L
[2020-11-29 05:54] LABS: Basophils Percent Auto 0.3 % (0.2-1.2); Eosinophils Absolute Auto 0.1 K/mm3 (0-0.3); Eosinophils Percent Auto 0.4 % (0-4.4); Hematocrit 31.9 % (42.0-52.0); Hemoglobin 10.2 g/dL (14.0-18.0); Immature Granulocyte Absolute 0.34 K/mm3 (0.00-0.031); Immature Granulocyte Percent A 2.6 % (0-0.5); Lymphocytes Absolute Auto 0.37 K/mm3 (0.9-3.2); Lymphocytes Percent Auto 2.9 % (18.3-44.2); Mean Corpuscular Hemoglobin 30.4 pg (26-34); Mean Corpuscular Volume 94.9 fl (80-100); Mean Platelet Volume 10.4 fl (7.4-10.4); Monocytes Percent Auto 7.8 % (2.6-8.5); Neutrophils Absolute Auto 11.1 K/mm3 (1.3-6.7); Platelet Count Result 170 k/mm3 (150-375); Red Blood Count 3.36 M/mm3 (4.6-6.20); Red Cell Distribution Width 13.9 % (11.5-14.5); White Blood Count 12.9 K/mm3 (4.5-10.0)
[2020-11-29 05:58] LABS: Glucose Point of Care 79 (65-105)
[2020-11-29 06:06] LABS: Albumin Level 2.9 g/dL (3.5-5.1); Anion Gap 7 mmol/L (8-16); Blood Urea Nitrogen 66 mg/dL (9-20); Calcium 8.2 mg/dL (8.4-10.2); Carbon Dioxide 20 mmol/L (22-30); Chloride 109 mmol/L (98-107); Estimated CRCL calculation 12 ml/min; Estimated Glomerular Filt Rate 8; Glucose 79 mg/dL (75-110); Lipase 481 U/L (23-300); Magnesium 1.9 mg/dL (1.6-2.3); Potassium 4.7 mmol/L (3.4-5.0); Sodium 136 mmol/L (137-145)
[2020-11-29] MEDS: OXYMETAZOLINE HCL 0.05% NAS 15 ML BTL (*BKC) 2 SPRAY NASAL (06:54)
[2020-11-29 07:18] LABS: Hepatitis B Surface Antigen Negative (Negative)
[2020-11-29 07:23] LABS: HAV RESULT Negative (Negative); Hepatitis B Core IgM Result Negative (Negative)
[2020-11-29 07:35] LABS: Hepatitis B Surface Anti Res Negative; Hepatitis C Virus Antibody Negative (Negative)
[2020-11-29 08:51] LABS: Glucose Point of Care 73 (65-105)
[2020-11-29] MEDS: FAMOTIDINE 20 MG/2 ML VIAL IV PUSH ×2 (08:52→20:01)
[2020-11-29] MEDS: SODIUM CHLORIDE 0.9% IV 1,000 ML 75 ML IV CONT (10:26)
--- NOTE | 2020-11-29 11:04 | PC.NURSE ---
Code Blue called at 1104.
--- NOTE | 2020-11-29 11:27 | PC.NURSE ---
Transferred via bed to ICU.
[2020-11-29 12:01] LABS: Alveolar/Arterial O2 Gradient 395.6 mmHg; Base Excess ABG -11.5 mEq/l (+/-2.0); Fractional Inspired Oxygen 100 %; HCO3 ABG 17.8 mEq/l (22.0-26.0); Oxygen Content ABG 15.4 %vol (16.0-22.0); Oxygen Saturation ABG 99.4 % (95.0-100.0); Oxyhemoglobin 97.4 % THb (90.0-100.0); PCO2 ABG 56.4 mmHg (35.0-45.0); PO2 FiO2 Ratio Arterial Blood 2.61 %; Total Hemoglobin 10.8 g/dL (12.0-18.0)
[2020-11-29 12:03] LABS: Device VENTILATOR; Modified Allen's Test Pass; Site Drawn LEFT RADIAL; pH ABG 7.117 (7.350-7.450)
[2020-11-29 12:04] LABS: Arterial Blood Gas PEEP 8 cmH2O; Arterial Blood Gas Tidal Volume 450 ml; Arterial Blood Gas Vent Mode ASSIST CONTROL; Arterial Blood Gas Ventilator rate 22 /MIN
[2020-11-29 12:13] LABS: Hemoglobin 10.5 g/dL (14.0-18.0); Mean Corpuscular HGB Conc 30.9 g/dl (32-36); Mean Corpuscular Hemoglobin 31.2 pg (26-34); Mean Corpuscular Volume 100.9 fl (80-100); Mean Platelet Volume 10.5 fl (7.4-10.4); Platelet Count Result 234 k/mm3 (150-375); Red Blood Count 3.37 M/mm3 (4.6-6.20); Red Cell Distribution Width 14.1 % (11.5-14.5); White Blood Count 19.3 K/mm3 (4.5-10.0)
[2020-11-29 12:20] LABS: Lymphocytes Absolute Manual 0.96 K/mm3 (1.1-4.5); Monocytes Absolute Manual 1.54 K/mm3 (0.1-0.90); Monocytes Percent Manual 8 % (3-9); Neutrophils Percent Manual 87 % (46-73); Platelet Estimate Adequate (Adequate); Total Cells Counted 100
[2020-11-29 12:21] LABS: Anisocytosis 1+ (NORMAL)
[2020-11-29 12:24] LABS: Lipase 490 U/L (23-300); Phosphorus 11.6 mg/dL (2.5-4.5)
[2020-11-29 12:30] LABS: Alanine Aminotransferase 70 U/L (4-50); Albumin Level 2.7 g/dL (3.5-5.1); Alkaline Phosphatase 43 U/L (38-126); Anion Gap 9 mmol/L (8-16); Aspartate Amino Transferase 169 U/L (17-59); Bilirubin,Total 0.7 mg/dL (0.2-1.3); Blood Urea Nitrogen 73 mg/dL (9-20); Calcium 7.8 mg/dL (8.4-10.2); Carbon Dioxide 22 mmol/L (22-30); Chloride 108 mmol/L (98-107); Glucose 185 mg/dL (75-110); Magnesium 2.2 mg/dL (1.6-2.3); Potassium 4.5 mmol/L (3.4-5.0); Sodium 139 mmol/L (137-145)
[2020-11-29 12:47] LABS: Estimated CRCL calculation 13 ml/min; Estimated Glomerular Filt Rate 9
--- NOTE | 2020-11-29 13:13 | PDCODEBLUE ---
Code Blue Note Code Blue Note Time Arrived at Code Blue: 1205 Initial Rhythm on Arrival: Asystole Airway Management: Pt intubated during resuscitation Chest Compressions: In process on arrival to bedside Result of Code Blue: Pt transferred to ICU Cardiac Rhythm Post Code: Sinus tach Code Blue Summary: Responded to code blue on floor. When I arrived patient was getting CPR done. Limited information obtained from bedside nurse. Patient was in asystole epi x1 given and CPR continue. Patient was intubated during the code with difficulty says see separate note for details. Patient received 5 doses of epinephrine, 2 amps of bicarb and 1 amp of D50 along with CPR for close to 14 minutes before ROSC. Once pulse was obtained, patient was started on IV fluid bolus and transferred to ICU
[2020-11-29] MEDS: SODIUM BICARBONATE 8.4% 150 MEQ in DEXTROSE 5% 1,000 ML 950 ML 100 MEQ IV CONT (13:15)
[2020-11-29] MEDS: SODIUM BICARBONATE 8.4% 50 MEQ/50 ML SYRINGE IV PUSH (13:15)
--- NOTE | 2020-11-29 13:15 | P.PCNBED_ITS ---
Procedures Intubation Intubation Date: 11/29/20 Intubation Time: 12:15 Consent: Implied consent as patient was full code and intubation was performed during code blue A pre-procedural Time-Out was completed immediately before starting the pro cedure and confirmed: Patient Identification, Site, Procedure, Patient Position and the Availability of Requisite Equipment: No Sedative: none Laryngoscope: Roger ET tube size: 7.5 Tube secured depth (cm): 25 Tube secured location: teeth Tube placement confirmation: visualized tube passing through cords and confirmation by capnometry Patient tolerated procedure: well Intubation complications: difficult intubation Additional comments: Large amount of secretions were seen in his pharynx which were suction. I was unable to see vocal cords with MAC 4 blade. Patient was suction and bagged again CPR was being performed. On a 2nd attempt, I was again unable to see vocal cords despite required pressure. While I was waiting for glide scope, I made an attempt to intubate him with laryngoscope. Fortunately patient was intubated successfully on 1st attempt despite poor view an ETT was confirmed with both kept no mid tree and equal breath sounds bilaterally. ETT position was later confirmed with chest x-ray
--- NOTE | 2020-11-29 13:18 | WPDPROCEDUR ---
Procedures Central Line Placement Right Femoral: Central Line Date: 11/29/20 Central Line Time: 12:45 Performed Emergently - Given emergent patient condition, temporal constraints may have precluded informed consent.: Yes Consent: Patient had cardiac arrest and had poor IV access. Central venous catheter was emergently placed in right femoral vein Time Out Performed: Yes Patient Position: supine Patient placed on monitor/pulse ox: Yes Provider Prep: mask, sterile gown, sterile gloves, Max. sterile barrier precautions, cap and hand hygiene with conventional soap/water or alcohol based hand rub Central line prep: 2% Chlorhexidine scrub Central line lumen inserted: triple Length (cm): 16 Depth of Insertion (cm): 15 Post Procedure: sutured in place, good blood return, all ports aspirated, flushed, capped, transparent dressing, hemostatic product and aseptic technique maintained throughout procedure Patient tolerated procedure: well Complications: none
--- NOTE | 2020-11-29 13:20 | WPDCNINT ---
Assessment and Plan Assessment and plan (1) Cardiac arrest: Code(s): I46.9 - Cardiac arrest, cause unspecified Status: Acute Assessment and Plan: Patient was in asystole. Unclear etiology at this time large amount of secretions were seen during intubation in the posterior pharynx have aspirated. This could be consequence of hypoxia Patient had been drowsy and obtunded and may became hypercarbic leading to worsening of acidosis compounded by his acute renal failure which respiratory rate is cardiac arrest. Or this could be a primary cardiac event as patient has all the risk factors for coronary artery disease including diabetes hyperlipidemia and hypertension Sepsis Check echocardiogram, serial troponins, EKG did not show any ST elevation and showed sinus rhythm with nonspecific T-wave changes CT head chest abdomen was done Consult cardiology (2) Sepsis: Code(s): A41.9 - Sepsis, unspecified organism Status: Acute Assessment and Plan: Could be secondary to pneumonia question aspiration or pancreatitis Patient overall volume overloaded as evidence by bilateral pitting edema pulmonary edema Patient was given 1 fluid bolus during code Continue cautious IV fluids with bicarb Will start Zosyn empirically Check blood cultures May need vasopressors (3) Acute respiratory failure: Code(s): J96.00 - Acute respiratory failure, unspecified whether with hypoxia or hypercapnia Status: Acute Assessment and Plan: Acute Respiratory failure secondary to cardiac arrest, pulmonary edema, pneumonia, ? Aspiration Continue full mechanical ventilation support to prevent hypoxemia/hypercarbia and end organ damage. ABG and CT chest reviewed Wean FiO2 and increase respiratory rate to 26 Low tidal volume ventilation strategy to prevent volutrauma Bronchodilators (4) Acute on chronic kidney failure: Qualifiers: Acute renal failure type: unspecified Chronic kidney disease stage: unspecified stage Qualified Code(s): N17.9 - Acute kidney failure, unspecified; N18.9 - Chronic kidney disease, unspecified Code(s): N17.9 - Acute kidney failure, unspecified; N18.9 - Chronic kidney disease, unspecified Status: Acute Assessment and Plan: Patient had chronic kidney disease stage 4 and was admitted with acute renal failure Nephrology is following Renal ultrasound was done and showed medical renal disease His urine output Had been adequate prior to this event Monitor electrolytes creatinine and urine output IV fluids with bicarb May need dialysis (5) Acidosis: Code(s): E87.2 - Acidosis Status: Acute Assessment and Plan: Mixed acidosis Respiratory rate increased on the ventilator IV bicarb and IV fluid with bicarb (6) Encephalopathy: Code(s): G93.40 - Encephalopathy, unspecified Status: Acute Assessment and Plan: Per nurse patient was drowsy all night did receive Ativan and Zyprexa last night Suspect anoxic brain injury Head CT done did not show acute change Patient on TTM protocol to keep his temperature less than 36 Temperatures lower than that have not been shown to be beneficial especially for in-hospital cardiac arrest with non shockable rhythm and may even be harmful as reported by some studies (7) Hypertension: Qualifiers: Hypertension type: essential hypertension Qualified Code(s): I10 - Essential (primary) hypertension Code(s): I10 - Essential (primary) hypertension Status: Chronic Assessment and Plan: Blood pressure is in the normal range right now monitor closely (8) DM2 (diabetes mellitus, type 2): Qualifiers: Diabetes mellitus complication status: without complication Diabetes mellitus detention insulin use: without detention use Qualified Code(s): E11.9 - Type 2 diabetes mellitus without complications Code(s): E11.9 - Type 2 diabetes mellitus without complications
--- NOTE | 2020-11-29 13:21 | PC.NURSE ---
Patient down for CT scan and returned without incident.
--- NOTE | 2020-11-29 13:22 | ECG_ITS ---
Measurements Intervals [employer] Rate: 62 P: 43 AL: 193 QRS: -9 QRSD: 94 T: 27 QT: 389 QTc: 397 Interpretive Statements SINUS RHYTHM NONSPECIFIC T-WAVE ABNORMALITY- ANTEROLAT/INF LEADS BASELINE ARTIFACT- I, II, III BORDERLINE ECG Electronically Signed On 11-29-2020 15:36:28 VETERINARY DENTIST by Mika Caldwell D.O.
[2020-11-29 13:26] LABS: Glucose Point of Care 148 (65-105)
[2020-11-29] MEDS: ASPIRIN 325 MG TABLET PO (13:52)
--- NOTE | 2020-11-29 14:09 | P.PNNP_ITS ---
Progress Note: A&P Assessment and Plan (1) MARNI (acute kidney injury): Code(s): N17.9 - Acute kidney failure, unspecified Status: Acute Assessment and Plan: * as noted by trend of labs in the last 24 hours * suspect prerenal factors and pancreatitis to blame * still making urine - non-oliguric * follow trend of repeat labs and UOP * suspect another insult with asystole/cardiac arrest today in the form of ATN (2) Chronic kidney disease, stage 4 (severe): Code(s): N18.4 - Chronic kidney disease, stage 4 (severe) Status: Chronic Assessment and Plan: * baseline creatinine ~ 2.2 - 2.4mg/dl * presumably due to diabetes and hypertension * follows with Dr. Mckeon for CKD management (3) Cardiac arrest: Code(s): I46.9 - Cardiac arrest, cause unspecified Status: Acute Assessment and Plan: * asystole but unclear what potentiated it * ROSC after 14 minutes so there is a concern for anoxic brain injury * on hypothermia protocol (4) Acute respiratory failure: Code(s): J96.00 - Acute respiratory failure, unspecified whether with hypoxia or hypercapnia Status: Acute Assessment and Plan: * on mechanical ventilation * possible aspiration? * continue ventilator support (5) Acute pancreatitis: Qualifiers: Acute pancreatitis complication: unspecified Pancreatitis type: idiopathic Qualified Code(s): K85.00 - Idiopathic acute pancreatitis without necrosis or infection Code(s): K85.90 - Acute pancreatitis without necrosis or infection, unspecified Status: Acute Assessment and Plan: * findings seem consistent - abdominal pain, nausea/vomiting and results of CT abd/pelvis * lipase better but still elevated * supportive therapy with bowel rest and NPO status * IV hydration * pain control (6) Lethargy: Code(s): R53.83 - Other fatigue Status: Acute Assessment and Plan: * due to pain medications versus MARNI/ARF versus both or something else * possible CO2 retention * reassess after hypothermia protocol (7) Hypertension: Qualifiers: Hypertension type: essential hypertension Qualified Code(s): I10 - Ess ential (primary) hypertension Code(s): I10 - Essential (primary) hypertension Status: Chronic Assessment and Plan: * relatively stable hemodynamics * follow trend and may need pressors given cardiac arrest (8) DM2 (diabetes mellitus, type 2): Qualifiers: Diabetes mellitus fci insulin use: without petroleum terminal plant operator use Diabetes mellitus complication status: without complication Qualified Code(s): E11.9 - Type 2 diabetes mellitus without complications Code(s): E11.9 - Type 2 diabetes mellitus without complications Status: Acute Assessment and Plan: * follow accuchecks * on SSI Will continue to follow. Subjective Date/time seen: 11/29/20 14:09 Events noted earlier this AM -- code blue for asystole; ACLS protocol intitated and patient intubated with ROSC after approximately 14 minutes; on mechanical ventilation but unresponsive; apparently, patient's mental status overnight was fluctuating as well. Exam Narrative: Exam Narrative: General: ill appearing male intubated Heart: normal S1 and S2; no rub Lungs: clear to auscultation Abdomen: soft, mild TTP in RUQ, mild distension, positive bowel sounds Extremities: no cyanosis or clubbing; no edema Skin: warm and dry Objective Data Vital Sig
--- NOTE | 2020-11-29 14:09 | PM.PNNEP ---
Progress Note: A&P Assessment and Plan (1) MARNI (acute kidney injury): Code(s): N17.9 - Acute kidney failure, unspecified Status: Acute Assessment and Plan: as noted by trend of labs in the last 24 hours suspect prerenal factors and pancreatitis to blame still making urine - non-oliguric follow trend of repeat labs and UOP suspect another insult with asystole/cardiac arrest today in the form of ATN (2) Chronic kidney disease, stage 4 (severe): Code(s): N18.4 - Chronic kidney disease, stage 4 (severe) Status: Chronic Assessment and Plan: baseline creatinine ~ 2.2 - 2.4mg/dl presumably due to diabetes and hypertension follows with Dr. Mckeon for CKD management (3) Cardiac arrest: Code(s): I46.9 - Cardiac arrest, cause unspecified Status: Acute Assessment and Plan: asystole but unclear what potentiated it ROSC after 14 minutes so there is a concern for anoxic brain injury on hypothermia protocol (4) Acute respiratory failure: Code(s): J96.00 - Acute respiratory failure, unspecified whether with hypoxia or hypercapnia Status: Acute Assessment and Plan: on mechanical ventilation possible aspiration? continue ventilator support (5) Acute pancreatitis: Qualifiers: Acute pancreatitis complication: unspecified Pancreatitis type: idiopathic Qualified Code(s): K85.00 - Idiopathic acute pancreatitis without necrosis or infection Code(s): K85.90 - Acute pancreatitis without necrosis or infection, unspecified Status: Acute Assessment and Plan: findings seem consistent - abdominal pain, nausea/vomiting and results of CT abd/pelvis lipase better but still elevated supportive therapy with bowel rest and NPO status IV hydration pain control (6) Lethargy: Code(s): R53.83 - Other fatigue Status: Acute Assessment and Plan: due to pain medications versus MARNI/ARF versus both or something else possible CO2 retention reassess after hypothermia protocol (7) Hypertension: Qualifiers: Hypertension type: essential hypertension Qualified Code(s): I10 - Essential (primary) hypertension Code(s): I10 - Essential (primary) hypertension Status: Chronic Assessment and Plan: relatively stable hemodynamics follow trend and may need pressors given cardiac arrest (8) DM2 (diabetes mellitus, type 2): Qualifiers: Diabetes mellitus intermediate teacher insulin use: without intermediate teacher use Diabetes mellitus complication status: without complication Qualified Code(s): E11.9 - Type 2 diabetes mellitus without complications Code(s): E11.9 - Type 2 diabetes mellitus without complications Status: Acute Assessment and Plan: follow accuchecks on SSI Will continue to follow. Subjective Date/time seen: 11/29/20 14:09 Events noted earlier this AM -- code blue for asystole; ACLS protocol intitated and patient intubated with ROSC after approximately 14 minutes; on mechanical ventilation but unresponsive; apparently, patient's mental status overnight was fluctuating as well. Exam Narrative: Exam Narrative: General: ill appearing male intubated Heart: normal S1 and S2; no rub Lungs: clear to auscultation Abdomen: soft, mild TTP in RUQ, mild distension, positive bowel sounds Extremities: no cyanosis or clubbing; no edema Skin: warm and dry Objective Data Vital Signs Vital Signs: Vital Signs Temp Pulse Resp BP Pulse Ox 11/29/20 14:00 36.4 C L 85 23 H 142/88 H 100 11/29/20 12:00 89 11/29/20 11:35 89 11/29/20 11:20 100 11/29/20 08:52 24 H 95 11/29/20 00:00 36.6 C 114 H 26 H 167/93 H 95 11/28/20 20:50 108 H 11/28/20 20:00 36.9 C 108 H 22 H 154/77 H 94 Intake/Output Intake/Output: Intake & Output 11/26/20 11/27/20 11/28/20 11/29/20 23:59 23:59 23:59 23:59 Intake Total 1
[2020-11-29 14:16] LABS: Ammonia < 9 umol/L (9-30); Triglycerides 134 mg/dL (<150)
[2020-11-29 14:34] LABS: Troponin I 0.053 ng/mL (0.000-0.034)
[2020-11-29] MEDS: PERFLUTREN LIPID MICROSPHERES 1.5 ML VIAL DILUTED TO 10 ML TOTAL VOLUME IV PUSH (14:45)
[2020-11-29 15:10] LABS: Reflex Lactic Acid Yes or No Add Lactic
--- NOTE | 2020-11-29 15:14 | PM.CNCAR ---
Assessment and Plan Additional Plan 70-year-old white male with: Cardiopulmonary arrest on the floor in a patient who presented a couple of days ago in transfer with pancreatitis. His level of responsiveness for the last 48 hours or so has been compromised and the evidence on the code according to the molder shoulder pad suggest he had a primary respiratory event, possibly an aspiration and after that became asystolic. After CPR epinephrine and bicarbonate administration his rhythm was restored and he is now intubated in the ICU. He also has severe renal insufficiency getting much worse since he has been in the hospital. Since he is known not to have significant coronary artery disease by virtue of an angiogram which was done within the last several years at another hospital the chance that this was primarily an ischemic event is quite low. There does not appear to be any significant evidence in the chart to suggest this. His troponin was is modestly elevated which of course is to be expected and I do expect those levels to rise further because he was asystolic for a period of time this morning before spontaneous circulation was restored. According to the code sheet there was 14 minutes of asystole before a rhythm was restored and there may have been a short period of time in addition to this before the arrest was recognized on the floor. As 1 would expect he is unresponsive at this time. At this time there is nothing to recommend other than aggressive supportive care in the ICU. His prognosis is obviously guarded at this time Tadeo Goodwin MD [facility] History of Present Illness History of Present Illness Consult date/time: 11/29/20 15:14 Reason For Visit: Acute pancreatitis Narrative: This is a 70-year-old patient who I have not seen previously I am seeing him in the ICU room 7. At the request of the molder shoulder pad because of a cardiopulmonary arrest which occurred on the floor couple of hours ago and an elevated troponin level. The entire history is obtained therefore from speaking to the molder shoulder pad who ran the code on this patient as well as reviewing the chart. This gentleman was transferred to [facility] from [place] couple of days ago with the abdominal pain and the clinical laboratory diagnosis of pancreatitis with a lipase level of over 18,000. He was treated with intravenous fluid and analgesics and also [place] a found to have acute on chronic renal failure. Apparently he has a serum creatinine that normally is in the range of 2 and it was in about 3.6 on admission and is now over 6. The patient did not have any cardiovascular complaints to the best of my knowledge upon reviewing the record. The lab last couple of days progress notes demonstrate that he was rather lethargic and poorly responsive on 1 occasion he was given some Narcan with improvement. Earlier today he was found to be unresponsive in his bed on the medical floor a code was called and he was found to be asystolic. Following return of spot spontaneous circulation which occurred after CPR bicarb and 5 rounds of epinephrine he had a blood gas that suggested significant metabolic as well as respiratory acidosis. Electrocardiogram did not show any evidence of acute myocardial injury his troponin level is slightly elevated at 0.053 prompting this consultation request. Patient is currently in the ICU room 7. Intubated unresponsive and is being started on a cooling blanket. He has records from a trust manager at [facility] which referred to a previous ischemia evaluation which included a coronary angiogram in January of 2016 which did not show any evidence of significant coronary disease. Apparently he had some mild luminal irregularities but good left ventricular systolic function. I can't tell from reading the note what the reason was for the ischemia evaluation at that time. In any event in this setting we are seeing him in consultation. I do not know that the specific r
--- NOTE | 2020-11-29 15:22 | PM.IMPN ---
Progress Note: A&P Assessment and Plan (1) Acute pancreatitis: Qualifiers: Acute pancreatitis complication: unspecified Pancreatitis type: idiopathic Qualified Code(s): K85.00 - Idiopathic acute pancreatitis without necrosis or infection Code(s): K85.90 - Acute pancreatitis without necrosis or infection, unspecified Status: Acute Assessment and Plan: Patient presented to outside hospital with abdominal pain, nausea/vomiting; CT abd/pelvis demonstrated evidence consistent with acute interstitial pancreatitis. Lipase improved nicely from 18,416 to 481 this morning. with improvement and flatus 11/28 started clears. Continue supportive care with IV hydration, pain control, antiemetics. Avoid narcotics due to lethargy early in hospitalization (2) Cholelithiasis: Qualifiers: Cholelithiasis location: other site Biliary obstruction: without biliary obstruction Qualified Code(s): K80.80 - Other cholelithiasis without obstruction Code(s): K80.20 - Calculus of gallbladder without cholecystitis without obstruction Status: Acute Assessment and Plan: A gallstone in the gallbladder is noted on CT. Bilirubin and LFTs are within normal limits thus biliary obstruction does not appear to be contributing at this point. (3) Acute on chronic kidney failure: Qualifiers: Acute renal failure type: unspecified Chronic kidney disease stage: unspecified stage Qualified Code(s): N17.9 - Acute kidney failure, unspecified; N18.9 - Chronic kidney disease, unspecified Code(s): N17.9 - Acute kidney failure, unspecified; N18.9 - Chronic kidney disease, unspecified Status: Acute Assessment and Plan: He is a patient of Dr Mckeon in [place]. He is not on dialysis. He is unsure what his baseline creatinine is, requested to obtain records for reference. Cr increased overnight and up to 6.8 this morning. May be related to poor oral intake at home and prerenal azotemia renal ultrasound no obstruction and urine output picking up last 12 hours. K 4.7 today after Kayexalate 11/28 (4) Hypertension: Qualifiers: Hypertension type: essential hypertension Qualified Code(s): I10 - Essential (primary) hypertension Code(s): I10 - Essential (primary) hypertension Status: Chronic Assessment and Plan: Some elevated BPs 11/27 likely secondary to pain and missed medications, now better controlled this AM last 142/76. Continue home carvedilol. Home losartan held due to renal function. He was recently taken off of amlodipine due to LE swelling and started on losartan in last 1 mo. Monitor BP and adjust treatment as needed. 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 Home metformin held due to worsening renal function. Continue to monitor with accu-cheks and adjust treatment as needed, cover with SSI. (6) Hyperlipidemia: Qualifiers: Hyperlipidemia type: unspecified Qualified Code(s): E78.5 - Hyperlipidemia, unspecified Code(s): E78.5 - Hyperlipidemia, unspecified Status: Chronic Assessment and Plan: Home medications may be resumed once he is tolerating a diet better. (7) Gout: Qualifiers: Gout site: unspecified site Gout etiology: unspecified cause Chronicity: chronic Presence of tophus: without tophus Qualified Cod
--- NOTE | 2020-11-29 15:23 | PC.NURSE ---
Per Dr. Goodwin call troponin results to Dr. Weinberg.
[2020-11-29 16:44] LABS: Lactic Acid Reflex 0.8 mmol/L (0.7-2.1)
[2020-11-29 17:07] LABS: Glucose Point of Care 128 (65-105)
[2020-11-29] MEDS: CENTRAL LINE FLUSH 10 ML IV PUSH ×2 (17:07→20:00)
[2020-11-29] MEDS: PROPOFOL IV EMULSION 100 ML 3.33 MG IV CONT (18:48)
[2020-11-29] MEDS: ENOXAPARIN 30 MG/0.3 ML SYRINGE SUB-Q (20:01)
[2020-11-29 20:28] LABS: Troponin I 0.069 ng/mL (0.000-0.034)
[2020-11-29 23:29] LABS: Glucose Point of Care 116 (65-105)
[2020-11-30] VITALS (31 sets, daily range): BP systolic 143–196; BP diastolic 75–176; PULSE 82–107; RESP 18–28; TEMP 34.8–36.9; O2SAT 95–100
[2020-11-30] MEDS: PROPOFOL IV EMULSION 100 ML 10 MG IV CONT (01:04)
[2020-11-30] MEDS: SODIUM BICARBONATE 8.4% 150 MEQ in DEXTROSE 5% 1,000 ML 950 ML 100 MEQ IV CONT (02:24)
[2020-11-30 03:15] LABS: Troponin I 0.057 ng/mL (0.000-0.034)
[2020-11-30 04:32] LABS: Alveolar/Arterial O2 Gradient 135.8 mmHg; Base Excess ABG -5.4 mEq/l (+/-2.0); Carboxyhemoglobin 0.3 % THb (0-2.0); Fractional Inspired Oxygen 45 %; HCO3 ABG 21.6 mEq/l (22.0-26.0); Methemoglobin ABG 0.3 %THb (0-1.5); Oxygen Content ABG 16.9 %vol (16.0-22.0); Oxygen Saturation ABG 98.2 % (95.0-100.0); Oxyhemoglobin 96.4 % THb (90.0-100.0); PCO2 ABG 47.9 mmHg (35.0-45.0); PO2 ABG 130.6 mmHg (80.0-100.0); Total Hemoglobin 12.3 g/dL (12.0-18.0)
[2020-11-30 04:34] LABS: Site Drawn LEFT RADIAL; pH ABG 7.271 (7.350-7.450)
[2020-11-30 04:35] LABS: Device VENTILATOR; Modified Allen's Test Unable to perform
[2020-11-30 04:36] LABS: Arterial Blood Gas PEEP 8 cmH2O; Arterial Blood Gas Tidal Volume 450 ml; Arterial Blood Gas Vent Mode ASSIST CONTROL; Arterial Blood Gas Ventilator rate 26 /MIN
[2020-11-30] MEDS: CENTRAL LINE FLUSH 10 ML IV PUSH ×4 (05:48→19:49)
[2020-11-30 06:07] LABS: Hematocrit 31.7 % (42.0-52.0); Hemoglobin 10.4 g/dL (14.0-18.0); Mean Corpuscular HGB Conc 32.8 g/dl (32-36); Mean Corpuscular Hemoglobin 30.6 pg (26-34); Mean Corpuscular Volume 93.2 fl (80-100); Mean Platelet Volume 10.3 fl (7.4-10.4); Platelet Count Result 182 k/mm3 (150-375); Red Cell Distribution Width 13.9 % (11.5-14.5); White Blood Count 12.6 K/mm3 (4.5-10.0)
[2020-11-30] MEDS: PROPOFOL IV EMULSION 100 ML 16.67 MG IV CONT ×2 (06:19→10:31)
[2020-11-30] MEDS: hydrALAZINE HCL 20 MG/ML VIAL 10 MG IV PUSH (06:22)
[2020-11-30 06:24] LABS: Alanine Aminotransferase 121 U/L (4-50); Alkaline Phosphatase 51 U/L (38-126); Anion Gap 9 mmol/L (8-16); Aspartate Amino Transferase 116 U/L (17-59); Bilirubin,Total 0.8 mg/dL (0.2-1.3); Blood Urea Nitrogen 81 mg/dL (9-20); Calcium 8.4 mg/dL (8.4-10.2); Carbon Dioxide 27 mmol/L (22-30); Chloride 104 mmol/L (98-107); Estimated CRCL calculation 11 ml/min; Estimated Glomerular Filt Rate 7; Glucose 109 mg/dL (75-110); Lipase 450 U/L (23-300); Magnesium 2.1 mg/dL (1.6-2.3); Potassium 4.9 mmol/L (3.4-5.0); Sodium 140 mmol/L (137-145)
--- NOTE | 2020-11-30 07:49 | PC.NURSE ---
Patient transferred from [address] [place] [address] 11/29/20 at 1135 after cardiac arrest. Patient belongings in room.
[2020-11-30] MEDS: FAMOTIDINE 20 MG/2 ML VIAL IV PUSH ×2 (09:04→19:48)
[2020-11-30] MEDS: ASPIRIN 325 MG TABLET PO (09:04)
--- NOTE | 2020-11-30 09:40 | WPDINTPN ---
Progress Note: A&P Assessment and Plan (1) Cardiac arrest: Code(s): I46.9 - Cardiac arrest, cause unspecified Status: Acute Assessment and Plan: Patient was in asystole. Unclear etiology at this time large amount of secretions were seen during intubation in the posterior pharynx have aspirated. This could be consequence of hypoxia Patient had been drowsy and obtunded and may became hypercarbic leading to worsening of acidosis compounded by his acute renal failure which respiratory rate is cardiac arrest. Or this could be a primary cardiac event as patient has all the risk factors for coronary artery disease including diabetes hyperlipidemia and hypertension Sepsis Serial troponins has trended down now EKG did not show any ST elevation and showed sinus rhythm with nonspecific T-wave changes CT head chest abdomen was done Patient was seen by Cardiology and global logistics manager had no other specific recommendations at this time Bilateral lower extremity Dopplers were negative for DVT and echocardiogram did not show any RV dilation or failure (2) Sepsis: Code(s): A41.9 - Sepsis, unspecified organism Status: Acute Assessment and Plan: Could be secondary to pneumonia question aspiration or pancreatitis Patient overall volume overloaded as evidence by bilateral pitting edema pulmonary edema Patient was given 1 fluid bolus during code Continue cautious IV fluids with bicarb which I will discontinue today Continue Zosyn empirically Pending blood cultures (3) Acute respiratory failure: Code(s): J96.00 - Acute respiratory failure, unspecified whether with hypoxia or hypercapnia Status: Acute Assessment and Plan: Acute Respiratory failure secondary to cardiac arrest, pulmonary edema, pneumonia, ? Aspiration Continue full mechanical ventilation support to prevent hypoxemia/hypercarbia and end organ damage. ABG and CT chest reviewed FiO2 decreased to 40% and respiratory rate increased to 28 Low tidal volume ventilation strategy to prevent volutrauma Bronchodilators (4) Anoxic brain injury: Code(s): G93.1 - Anoxic brain damage, not elsewhere classified Status: Acute Assessment and Plan: Per nurse patient was drowsy on night prior to his cardiac arrest and he did receive Ativan and Zyprexa last night Post cardiac arrest patient has been unresponsive and likely has anoxic brain injury. His down time was close to 14-15 minutes may have been longer prior to calling Code Head CT done did not show acute change Patient on TTM protocol at this time and will continue for 24 hours Overnight I was called that patient appeared to be having jerky movement which I suspect were myoclonic jerks and was started on propofol. I will continue propofol at this time until hypothermia is complete. Will consider getting EEG depending on his new response post TTM and sedation holiday (5) Acute on chronic kidney failure: Qualifiers: Acute renal failure type: unspecified Chronic kidney disease stage: unspecified stage Qualified Code(s): N17.9 - Acute kidney failure, unspecified; N18.9 - Chronic kidney disease, unspecified Code(s): N17.9 - Acute kidney failure, unspecified; N18.9 - Chronic kidney disease, unspecified Status: Acute Assessment and Plan: Patient had chronic kidney disease stage 4 and was admitted with acute renal failure Nephrology is following Renal ultrasound was done and showed medical renal disease His urine output Had been adequate prior to this event Monitor electrolytes creatinine and urine output Will discontinue IV fluids with bicarb Will likely need dialysis eventually but no indication at this time (6) Acidosis: Code(s): E87.2 - Acidosis Status: Acute Assessment and Plan: Mixed acidosis-improved with vent changes and IV fluid with bicarb (7) Hypertension: Qualifiers: Hypertension type: essential hypertension Quali
--- NOTE | 2020-11-30 10:09 | PM.PNCARD ---
Progress Note: A&P Assessment and Plan (1) Cardiac arrest: Code(s): I46.9 - Cardiac arrest, cause unspecified Status: Acute Assessment and Plan: Still undergoing cooling protocol. Starting to read warm later this afternoon. Continue supportive care. Will order echo to be performed on Wednesday. (2) Acute pancreatitis: Qualifiers: Acute pancreatitis complication: unspecified Pancreatitis type: idiopathic Qualified Code(s): K85.00 - Idiopathic acute pancreatitis without necrosis or infection Code(s): K85.90 - Acute pancreatitis without necrosis or infection, unspecified Status: Acute (3) Hypertension: Qualifiers: Hypertension type: essential hypertension Qualified Code(s): I10 - Essential (primary) hypertension Code(s): I10 - Essential (primary) hypertension Status: Chronic Assessment and Plan: Above goal (4) Anoxic brain injury: Code(s): G93.1 - Anoxic brain damage, not elsewhere classified Status: Acute Assessment and Plan: Likely significant Subjective Date/time seen: 11/30/20 10:09 Interval history: 70-year-old admitted for pancreatitis. Status post arrest: Likely pulmonary or aspiration Date of service 11/30/2020: Still undergoing cooling protocol. Reportedly minimally responsive to pain. Rhythm is stable Review of Systems Review of Systems: ROS unobtainable: Yes unobtainable due to endotracheal tube and unobtainable due to medical condition ENT: Denies epistaxis Respiratory: Respiratory: Denies hemoptysis Gastrointestinal: Gastrointestinal: Denies diarrhea Exam Const: Other: Overweight intubated white male ICU room 7. Patient unresponsive to tactile and noxious stimulus HENMT: Mouth: Yes dry mucous membranes Eyes: Sclera: sclerae normal Pupils: Equal, round and reactive pupils present Neck: Neck: no JVD Other: Carotid pulses are adequate no bruits are evident Resp: Other: Breath sounds so show some central rhonchi bilaterally no rales no wheezing Cardio: Rate: regular rate Other: Very soft systolic murmur that does not radiate from the left sternal border GI: Inspection: normal to inspection Neuro: Cranial nerves: Yes Equal, round and reactive pupils present Other: Unresponsive Extrem: Other: Adequate peripheral perfusion Objective Data Vital Signs Vital Signs: Vital Signs - 24 hr 11/29/20 11:20 11/29/20 11:35 11/29/20 12:00 Temperature Pulse Rate 89 89 Respiratory Rate Blood Pressure Pulse Oximetry 100 11/29/20 14:00 11/29/20 14:56 11/29/20 14:59 Temperature 36.4 C L Pulse Rate 85 88 73 Respiratory Rate 23 H 22 H Blood Pressure 142/88 H 135/72 Pulse Oximetry 100 98 99 11/29/20 16:00 11/29/20 17:30 11/29/20 17:32 Temperature 36.3 C L Pulse Rate 89 88 97 Respiratory Rate 23 H 22 H Blood Pressure 166/95 H 183/80 H Pulse Oximetry 100 100 100 11/29/20 18:00 11/29/20 18:39 11/29/20 18:48 Temperature Pulse Rate 102 H 102 H 84 Respiratory Rate 23 H 23 H 27 H Blood Pressure 179/96 H 106/78 Pulse Oximetry 100 100 11/29/20 19:57 11/29/20 20:00 11/29/20 20:05 Temperature 36.3 C L Pulse Rate 100 112 H 94 Respiratory Rate 23 H 32 H Blood Pressure 176/146 H Pulse Oximetry 99 100 11/29/20 21:22 11/29/20 21:25 11/29/20 22:00 Temperature Pulse Rate 88 90 97 Respiratory Rate 27 H 23 H Blood Pressure 165/95 H Pulse Oximetry 100 11/29/20 22:46 11/30/20 00:00 11/30/20 01:04 Temperature 36.2 C L Pulse Rate 102 H 91 98 Respiratory Rate 23 H 27 H Blood Pressure 171/107 H Pulse Oximetry 100 100 11/30/20 02:00 11/30/20 02:25 11/30/20 04:00 Temperature 35.9 C L 35.9 C L Pulse Rate 100 95 100 Respiratory Rate 23 H 26 H 23 H Blood Pressure 146/106 H 178/102 H Pulse Oximetry 100 99 11/30/20 04:52 11/30/20 05:46 11/30/20 06:00 Temperature 35.9 C L Pulse Rate 101 H 97 102 H Respiratory Rate 27 H B
[2020-11-30 11:45] LABS: Glucose Point of Care 74 (65-105)
[2020-11-30 12:29] LABS: Lactic Acid Reflex < 0.5 mmol/L (0.7-2.1)
--- NOTE | 2020-11-30 12:39 | P.PNNP_ITS ---
Progress Note: A&P Assessment and Plan (1) MARNI (acute kidney injury): Code(s): N17.9 - Acute kidney failure, unspecified Status: Acute Assessment and Plan: * as noted by trend of labs * suspect prerenal factors and pancreatitis to blame... * suspect another insult with asystole/cardiac arrest yesterday in the form of ATN * still making urine - non-oliguric * follow trend of repeat labs and UOP (2) Chronic kidney disease, stage 4 (severe): Code(s): N18.4 - Chronic kidney disease, stage 4 (severe) Status: Chronic Assessment and Plan: * baseline creatinine ~ 2.2 - 2.4mg/dl * presumably due to diabetes and hypertension * follows with Dr. Mckeon for CKD management (3) Cardiac arrest: Code(s): I46.9 - Cardiac arrest, cause unspecified Status: Acute Assessment and Plan: * asystole but unclear what potentiated it * ROSC after 14 minutes so there is a concern for anoxic brain injury * on hypothermia protocol (4) Acute respiratory failure: Code(s): J96.00 - Acute respiratory failure, unspecified whether with hypoxia or hypercapnia Status: Acute Assessment and Plan: * on mechanical ventilation * possible aspiration? * continue ventilator support (5) Acute pancreatitis: Qualifiers: Acute pancreatitis complication: unspecified Pancreatitis type: idiopathic Qualified Code(s): K85.00 - Idiopathic acute pancreatitis without necrosis or infection Code(s): K85.90 - Acute pancreatitis without necrosis or infection, unspecified Status: Acute Assessment and Plan: * findings seem consistent - abdominal pain, nausea/vomiting and results of CT abd/pelvis * lipase better but still elevated * supportive therapy with bowel rest and NPO status * IV hydration * pain control (6) Lethargy: Code(s): R53.83 - Other fatigue Status: Acute Assessment and Plan: * due to pain medications versus MARNI/ARF versus both or something else * possible CO2 retention * reassess after hypothermia protocol (7) Hypertension: Qualifiers: Hypertension type: essential hypertension Qualified Code(s): I10 - Essential (primary) hypertension Code(s): I10 - Essential (primary) hypertension Status: Chronic Assessment and Plan: * relatively stable hemodynamics * follow trend (8) DM2 (diabetes mellitus, type 2): Qualifiers: Diabetes mellitus complication status: without complication 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 Subjective Date/time seen: 11/30/20 12:39 Remains on hypothermia protocol; now on sedation but prior to this, he was unresponsive and apparently having myoclonic/jerking movements; remains on ventilator support; remains hemodynamically stable. Exam Narrative: Exam Narrative: General: ill appearing male intubated Heart: normal S1 and S2; no rub Lungs: coarse breatht sounds throughout Abdomen: soft, hypoactive positive bowel sounds Extremities: no cyanosis or clubbing; no edema Skin: warm and intact Objective Data Vital Signs Vital Signs: Vital Signs Temp Pulse Resp BP P
--- NOTE | 2020-11-30 12:39 | PM.PNNEP ---
Progress Note: A&P Assessment and Plan (1) MARNI (acute kidney injury): Code(s): N17.9 - Acute kidney failure, unspecified Status: Acute Assessment and Plan: as noted by trend of labs suspect prerenal factors and pancreatitis to blame... suspect another insult with asystole/cardiac arrest yesterday in the form of ATN still making urine - non-oliguric follow trend of repeat labs and UOP (2) Chronic kidney disease, stage 4 (severe): Code(s): N18.4 - Chronic kidney disease, stage 4 (severe) Status: Chronic Assessment and Plan: baseline creatinine ~ 2.2 - 2.4mg/dl presumably due to diabetes and hypertension follows with Dr. Mckeon for CKD management (3) Cardiac arrest: Code(s): I46.9 - Cardiac arrest, cause unspecified Status: Acute Assessment and Plan: asystole but unclear what potentiated it ROSC after 14 minutes so there is a concern for anoxic brain injury on hypothermia protocol (4) Acute respiratory failure: Code(s): J96.00 - Acute respiratory failure, unspecified whether with hypoxia or hypercapnia Status: Acute Assessment and Plan: on mechanical ventilation possible aspiration? continue ventilator support (5) Acute pancreatitis: Qualifiers: Acute pancreatitis complication: unspecified Pancreatitis type: idiopathic Qualified Code(s): K85.00 - Idiopathic acute pancreatitis without necrosis or infection Code(s): K85.90 - Acute pancreatitis without necrosis or infection, unspecified Status: Acute Assessment and Plan: findings seem consistent - abdominal pain, nausea/vomiting and results of CT abd/pelvis lipase better but still elevated supportive therapy with bowel rest and NPO status IV hydration pain control (6) Lethargy: Code(s): R53.83 - Other fatigue Status: Acute Assessment and Plan: due to pain medications versus MARNI/ARF versus both or something else possible CO2 retention reassess after hypothermia protocol (7) Hypertension: Qualifiers: Hypertension type: essential hypertension Qualified Code(s): I10 - Essential (primary) hypertension Code(s): I10 - Essential (primary) hypertension Status: Chronic Assessment and Plan: relatively stable hemodynamics follow trend (8) DM2 (diabetes mellitus, type 2): Qualifiers: Diabetes mellitus complication status: without complication Diabetes mellitus fdc insulin use: without long term care social worker use Qualified Code(s): E11.9 - Type 2 diabetes mellitus without complications Code(s): E11.9 - Type 2 diabetes mellitus without complications Status: Acute Assessment and Plan: follow accuchecks on SSI Will continue to follow. Subjective Date/time seen: 11/30/20 12:39 Remains on hypothermia protocol; now on sedation but prior to this, he was unresponsive and apparently having myoclonic/jerking movements; remains on ventilator support; remains hemodynamically stable. Exam Narrative: Exam Narrative: General: ill appearing male intubated Heart: normal S1 and S2; no rub Lungs: coarse breatht sounds throughout Abdomen: soft, hypoactive positive bowel sounds Extremities: no cyanosis or clubbing; no edema Skin: warm and intact Objective Data Vital Signs Vital Signs: Vital Signs Temp Pulse Resp BP Pulse Ox 11/30/20 12:00 34.8 C L 82 25 H 147/76 H 98 11/30/20 10:33 83 20 11/30/20 10:31 83 20 11/30/20 10:00 83 20 152/95 H 95 11/30/20 08:00 35.1 C L 99 25 H 145/75 H 98 11/30/20 07:55 93 98 11/30/20 06:19 103 H 11/30/20 06:00 35.9 C L 102 H 27 H 196/176 H 99 11/30/20 05:46 97 11/30/20 04:52 101 H 99 11/30/20 04:00 35.9 C L 100 23 H 178/102 H 99 11/30/20 02:25 95 26 H 11/30/20 02:00 35.9 C L 100 23 H 146/106 H 100 11/30/20 01:04 98 27 H 11/30/20 00:0
[2020-11-30] MEDS: PROPOFOL IV EMULSION 100 ML 23.33 MG IV CONT ×3 (14:43→23:32)
--- NOTE | 2020-11-30 15:31 | PC.NURSE ---
Off cooling blankets at 1400 per , awaiting for pt to become normal-thermic
--- NOTE | 2020-11-30 16:33 | PM.IMPN ---
Progress Note: A&P Assessment and Plan (1) Acute pancreatitis: Qualifiers: Acute pancreatitis complication: unspecified Pancreatitis type: idiopathic Qualified Code(s): K85.00 - Idiopathic acute pancreatitis without necrosis or infection Code(s): K85.90 - Acute pancreatitis without necrosis or infection, unspecified Status: Acute Assessment and Plan: Patient presented to outside hospital with abdominal pain, nausea/vomiting; CT abd/pelvis demonstrated evidence consistent with acute interstitial pancreatitis. Lipase improved nicely from 18,416 to 450 this morning. with improvement and flatus 11/28 started clears. Continue supportive care with IV hydration, pain control, antiemetics. Avoid narcotics due to lethargy early in hospitalization gallstone probable etiology , non drinker (2) Cholelithiasis: Qualifiers: Cholelithiasis location: other site Biliary obstruction: without biliary obstruction Qualified Code(s): K80.80 - Other cholelithiasis without obstruction Code(s): K80.20 - Calculus of gallbladder without cholecystitis without obstruction Status: Acute Assessment and Plan: A gallstone in the gallbladder is noted on CT. Bilirubin and LFTs are within normal limits thus no biliary obstruction but still could be etiology of pancreatitis (3) Acute on chronic kidney failure: Qualifiers: Acute renal failure type: unspecified Chronic kidney disease stage: unspecified stage Qualified Code(s): N17.9 - Acute kidney failure, unspecified; N18.9 - Chronic kidney disease, unspecified Code(s): N17.9 - Acute kidney failure, unspecified; N18.9 - Chronic kidney disease, unspecified Status: Acute Assessment and Plan: He is a patient of Dr Mckeon in [place]. He is not on dialysis. He is unsure what his baseline creatinine is, requested to obtain records for reference. Cr increased overnight and up to 7.6 this morning. May be related to poor oral intake at home and prerenal azotemia renal ultrasound no obstruction (4) Hypertension: Qualifiers: Hypertension type: essential hypertension Qualified Code(s): I10 - Essential (primary) hypertension Code(s): I10 - Essential (primary) hypertension Status: Chronic Assessment and Plan: Some elevated BPs 11/27 likely secondary to pain and missed medications, now better controlled this AM last 142/76. . He was recently taken off of amlodipine due to LE swelling and started on losartan in last 1 mo. Monitor BP and adjust treatment as needed. (5) DM2 (diabetes mellitus, type 2): Qualifiers: Diabetes mellitus intermediate insulin use: without intermediate use Diabetes mellitus complication status: without complication Qualified Code(s): E11.9 - Type 2 diabetes mellitus without complications Code(s): E11.9 - Type 2 diabetes mellitus without complications Status: Acute Assessment and Plan: Hgb A1c is 5.7%. Home metformin held due to worsening renal function. Continue to monitor with accu-cheks and adjust treatment as needed, cover with SSI. (6) Hyperlipidemia: Qualifiers: Hyperlipidemia type: unspecified Qualified Code(s): E78.5 - Hyperlipidemia, unspecified Code(s): E78.5 - Hyperlipidemia, unspecified Status: Chronic Assessment and Plan: Home medications may be resumed once he is tolerating a diet better. (7) Gout: Qualifiers: Gout site: unspecified site Gout etiology: unspecified cause Chronicity: chronic Presence of tophus: without tophus Qualified Code(s): M1A.9XX0 - Chronic gout, unspecified, without tophus (tophi) Code(s): M10.9 - Gout, unsp
[2020-11-30] MEDS: DEXTROSE 50% 25 GM/50 ML SYRINGE IV PUSH ×2 (17:37→23:33)
[2020-11-30 18:02] LABS: Glucose Point of Care 121 (65-105)
[2020-11-30 18:02] LABS: Glucose Point of Care 55 (65-105)
[2020-11-30] MEDS: ENOXAPARIN 30 MG/0.3 ML SYRINGE SUB-Q (19:48)
[2020-11-30 23:38] LABS: Glucose Point of Care 55 (65-105)
[2020-11-30 23:57] LABS: Glucose Point of Care 123 (65-105)
[2020-12-01] VITALS (27 sets, daily range): BP systolic 115–180; BP diastolic 65–89; PULSE 86–108; RESP 26–28; TEMP 37.1–37.8; O2SAT 95–100
[2020-12-01] MEDS: CENTRAL LINE FLUSH 10 ML IV PUSH ×4 (04:38→23:17)
[2020-12-01] MEDS: PROPOFOL IV EMULSION 100 ML 23.33 MG IV CONT (04:38)
[2020-12-01 04:46] LABS: Alveolar/Arterial O2 Gradient 153.9 mmHg; Base Excess ABG -6.4 mEq/l (+/-2.0); Carboxyhemoglobin 0.2 % THb (0-2.0); Fractional Inspired Oxygen 40 %; HCO3 ABG 16.8 mEq/l (22.0-26.0); Oxygen Content ABG 13.7 %vol (16.0-22.0); Oxygen Saturation ABG 97.9 % (95.0-100.0); Oxyhemoglobin 95.6 % THb (90.0-100.0); PCO2 ABG 26.2 mmHg (35.0-45.0); PO2 ABG 101.2 mmHg (80.0-100.0); PO2 FiO2 Ratio Arterial Blood 2.53 %; Reduced Hemoglobin 4.2 %THb (0-5.0); Total Hemoglobin 10.1 g/dL (12.0-18.0); pH ABG 7.424 (7.350-7.450)
[2020-12-01 04:47] LABS: Device VENTILATOR; Modified Allen's Test Pass; Site Drawn RIGHT RADIAL
[2020-12-01 04:48] LABS: Arterial Blood Gas PEEP 8 cmH2O; Arterial Blood Gas Tidal Volume 450 ml; Arterial Blood Gas Vent Mode CMV; Arterial Blood Gas Ventilator rate 28 /MIN
[2020-12-01 06:12] LABS: Hematocrit 28.1 % (42.0-52.0); Hemoglobin 9.3 g/dL (14.0-18.0); Mean Corpuscular HGB Conc 33.1 g/dl (32-36); Mean Corpuscular Hemoglobin 30.9 pg (26-34); Mean Corpuscular Volume 93.4 fl (80-100); Platelet Count Result 187 k/mm3 (150-375); Red Blood Count 3.01 M/mm3 (4.6-6.20); Red Cell Distribution Width 14.1 % (11.5-14.5); White Blood Count 9.5 K/mm3 (4.5-10.0)
[2020-12-01 06:48] LABS: Lactic Acid Reflex 0.5 mmol/L (0.7-2.1)
[2020-12-01 06:59] LABS: Glucose Point of Care 87 (65-105)
[2020-12-01 07:56] LABS: Alanine Aminotransferase 73 U/L (4-50); Albumin Level 2.7 g/dL (3.5-5.1); Alkaline Phosphatase 46 U/L (38-126); Anion Gap 12 mmol/L (8-16); Aspartate Amino Transferase 54 U/L (17-59); Bilirubin,Total 0.7 mg/dL (0.2-1.3); Blood Urea Nitrogen 92 mg/dL (9-20); Calcium 8.3 mg/dL (8.4-10.2); Carbon Dioxide 20 mmol/L (22-30); Chloride 105 mmol/L (98-107); Estimated CRCL calculation 11 ml/min; Estimated Glomerular Filt Rate 7; Glucose 85 mg/dL (75-110); Magnesium 2.2 mg/dL (1.6-2.3); Sodium 137 mmol/L (137-145)
[2020-12-01] MEDS: ASPIRIN 325 MG TABLET PO (08:09)
[2020-12-01] MEDS: FAMOTIDINE 20 MG/2 ML VIAL IV PUSH ×2 (08:09→19:49)
[2020-12-01] MEDS: levETIRAcetam 500MG/NACL 100ML 500 MG/100 ML BAG 400 MG IVPB ×2 (08:10→20:01)
--- NOTE | 2020-12-01 08:48 | WPDINTPN ---
Progress Note: A&P Assessment and Plan (1) Cardiac arrest: Code(s): I46.9 - Cardiac arrest, cause unspecified Status: Acute Assessment and Plan: Patient was in asystole. Unclear etiology at this time large amount of secretions were seen during intubation in the posterior pharynx and patient may have aspirated leading to hypoxia. Patient had been drowsy and obtunded and may became hypercarbic leading to worsening of acidosis compounded by his acute renal failure which led to cardiac arrest. Or this could be a primary cardiac event as patient has all the risk factors for coronary artery disease including diabetes hyperlipidemia and hypertension Sepsis Serial troponins has trended down now EKG did not show any ST elevation and showed sinus rhythm with nonspecific T-wave changes CT head chest abdomen was done and reviewed Patient was seen by Cardiology and clinical lab scientist had no other specific recommendations at this time Bilateral lower extremity Dopplers were negative for DVT and echocardiogram did not show any RV dilation or failure Hemodynamically stable at this time (2) Sepsis: Code(s): A41.9 - Sepsis, unspecified organism Status: Acute Assessment and Plan: Could be secondary to pneumonia question aspiration or pancreatitis Patient overall volume overloaded as evidence by bilateral pitting edema pulmonary edema Patient was given 1 fluid bolus during code Off of IV fluids now Continue Zosyn empirically Negative till date blood cultures (3) Acute respiratory failure: Code(s): J96.00 - Acute respiratory failure, unspecified whether with hypoxia or hypercapnia Status: Acute Assessment and Plan: Acute Respiratory failure secondary to cardiac arrest, pulmonary edema, pneumonia, ? Aspiration Continue full mechanical ventilation support to prevent hypoxemia/hypercarbia and end organ damage. ABG and CT chest reviewed FiO2 decreased to 40% and respiratory rate increased to 28 Low tidal volume ventilation strategy to prevent volutrauma Bronchodilators Weaning will depend on neurological improvement (4) Anoxic brain injury: Code(s): G93.1 - Anoxic brain damage, not elsewhere classified Status: Acute Assessment and Plan: Per nurse patient was drowsy on night prior to his cardiac arrest and he did receive Ativan and Zyprexa Post cardiac arrest patient has been unresponsive and now exhibiting what appears to be signs of anoxic brain injury. His down time was close to 14-15 minutes but may have been longer prior to calling Code. Head CT done did not show acute change Patient completed TTM protocol Continue propofol for now. Will start empiric Keppra until seizures or rule out on EEG although this appears more like myoclonic jerking Consult neurology. I will order EEG Re-evaluate in 24 hours which would be day 3 post arrest and a better prognostic marker Continue aggressive treatment of fever (5) Acute on chronic kidney failure: Qualifiers: Acute renal failure type: unspecified Chronic kidney disease stage: unspecified stage Qualified Code(s): N17.9 - Acute kidney failure, unspecified; N18.9 - Chronic kidney disease, unspecified Code(s): N17.9 - Acute kidney failure, unspecified; N18.9 - Chronic kidney disease, unspecified Status: Acute Assessment and Plan: Patient had chronic kidney disease stage 4 and was admitted with acute renal failure Nephrology is following Renal ultrasound was done and showed medical renal disease His urine output Had been adequate prior to and following this event Monitor electrolytes creatinine and urine output IV fluids with bicarb were discontinued to overall volume overload Will likely need dialysis eventually but no indication at this time Add p.o. bicarb (6) Acidosis: Code(s): E87.2 - Acidosis Status: Acute Assessment and Plan: Mixed acidosis-improved with vent changes and IV fluid with bi
[2020-12-01] MEDS: PROPOFOL IV EMULSION 100 ML 13.33 MG IV CONT ×2 (08:58→15:05)
--- NOTE | 2020-12-01 09:35 | PM.PNCARD ---
Progress Note: A&P Assessment and Plan (1) Cardiac arrest: Code(s): I46.9 - Cardiac arrest, cause unspecified Status: Acute Assessment and Plan: Likely pulmonary arrest (2) Acute pancreatitis: Qualifiers: Acute pancreatitis complication: unspecified Pancreatitis type: idiopathic Qualified Code(s): K85.00 - Idiopathic acute pancreatitis without necrosis or infection Code(s): K85.90 - Acute pancreatitis without necrosis or infection, unspecified Status: Acute (3) Hypertension: Qualifiers: Hypertension type: essential hypertension Qualified Code(s): I10 - Essential (primary) hypertension Code(s): I10 - Essential (primary) hypertension Status: Chronic Assessment and Plan: Above goal (4) Anoxic brain injury: Code(s): G93.1 - Anoxic brain damage, not elsewhere classified Status: Acute Assessment and Plan: Likely significant. EEG has been ordered Subjective Date/time seen: 12/01/20 09:35 Interval history: 70-year-old admitted for pancreatitis. Status post arrest: Likely pulmonary or aspiration Date of service 12/01/2020: Does withdrawal to pain. Rhythm is stable Review of Systems Review of Systems: ROS unobtainable: Yes unobtainable due to endotracheal tube and unobtainable due to medical condition ENT: Denies epistaxis Respiratory: Respiratory: Denies hemoptysis Gastrointestinal: Gastrointestinal: Denies diarrhea Exam Const: Other: Overweight intubated white male ICU room 7. He is moving to painful stimuli HENMT: Mouth: Yes dry mucous membranes Eyes: Sclera: sclerae normal Pupils: Equal, round and reactive pupils present Neck: Neck: no JVD Other: Carotid pulses are adequate no bruits are evident Resp: Other: Breath sounds so show some central rhonchi bilaterally no rales no wheezing Cardio: Rate: regular rate Other: Very soft systolic murmur that does not radiate from the left sternal border GI: Inspection: normal to inspection Neuro: Cranial nerves: Yes Equal, round and reactive pupils present Other: Unresponsive Extrem: Other: Adequate peripheral perfusion Objective Data Vital Signs Vital Signs: Vital Signs - 24 hr 11/30/20 10:00 11/30/20 10:31 11/30/20 10:33 Temperature Pulse Rate 83 83 83 Respiratory Rate 20 20 20 Blood Pressure 152/95 H Pulse Oximetry 95 11/30/20 10:50 11/30/20 12:00 11/30/20 14:00 Temperature 34.8 C L Pulse Rate 90 82 85 Respiratory Rate 25 H 18 Blood Pressure 147/76 H 157/89 H Pulse Oximetry 98 98 99 11/30/20 14:15 11/30/20 14:43 11/30/20 16:00 Temperature 35.3 C L Pulse Rate 85 85 92 Respiratory Rate 18 27 H Blood Pressure 143/101 H Pulse Oximetry 99 100 11/30/20 16:52 11/30/20 18:00 11/30/20 19:01 Temperature 36.4 C Pulse Rate 92 92 92 Respiratory Rate 28 H 28 H Blood Pressure 146/90 H Pulse Oximetry 100 98 11/30/20 19:02 11/30/20 19:49 11/30/20 20:00 Temperature 36.9 C Pulse Rate 92 97 98 Respiratory Rate 28 H 28 H 27 H Blood Pressure 152/109 H Pulse Oximetry 99 11/30/20 20:53 11/30/20 22:00 11/30/20 23:18 Temperature Pulse Rate 100 102 H 107 H Respiratory Rate 26 H Blood Pressure 160/85 H Pulse Oximetry 99 99 99 11/30/20 23:20 11/30/20 23:32 12/01/20 00:00 Temperature 37.7 C H Pulse Rate 107 H 107 H 107 H Respiratory Rate 22 H 22 H 27 H Blood Pressure 167/86 H Pulse Oximetry 99 12/01/20 02:00 12/01/20 02:17 12/01/20 03:50 Temperature Pulse Rate 107 H 105 H 94 Respiratory Rate 27 H Blood Pressure 180/85 H Pulse Oximetry 99 99 12/01/20 04:00 12/01/20 04:38 12/01/20 05:00 Temperature 37.8 C H Pulse Rate 106 H 94 101 H Respiratory Rate 27 H Blood Pressure 179/86 H Pulse Oximetry 99 99 12/01/20 05:53 12/01/20 07:18 12/01/20 07:50 Temperature Pulse Rate 103 H 103 H 103 H Respiratory Rate 27 H 27 H 27 H Blood Pressure 159/77 H Puls
[2020-12-01] MEDS: SODIUM BICARBONATE TAB 650 MG TABLET 1300 MG PO ×2 (10:48→17:26)
[2020-12-01 12:01] LABS: Glucose Point of Care 87 (65-105)
--- NOTE | 2020-12-01 12:46 | PM.PNNEP ---
Progress Note: A&P Assessment and Plan (1) MARNI (acute kidney injury): Code(s): N17.9 - Acute kidney failure, unspecified Status: Acute Assessment and Plan: as noted by trend of labs suspect prerenal factors and pancreatitis to blame... suspect another insult with asystole/cardiac arrest yesterday in the form of ATN still making urine - non-oliguric follow trend of repeat labs and UOP no acute need for DESIGN COORDINATOR/dialysis at this time but he remains at risk not opposed to PRN IV diuretics if needed for volume overload (2) Chronic kidney disease, stage 4 (severe): Code(s): N18.4 - Chronic kidney disease, stage 4 (severe) Status: Chronic Assessment and Plan: baseline creatinine ~ 2.2 - 2.4mg/dl presumably due to diabetes and hypertension follows with Dr. Mckeon for CKD management (3) Cardiac arrest: Code(s): I46.9 - Cardiac arrest, cause unspecified Status: Acute Assessment and Plan: asystole but unclear what potentiated it ROSC after 14 minutes so there is a concern for anoxic brain injury s/p hypothermia protocol (4) Acute respiratory failure: Code(s): J96.00 - Acute respiratory failure, unspecified whether with hypoxia or hypercapnia Status: Acute Assessment and Plan: on mechanical ventilation possible aspiration? continue ventilator support (5) Acute pancreatitis: Qualifiers: Acute pancreatitis complication: unspecified Pancreatitis type: idiopathic Qualified Code(s): K85.00 - Idiopathic acute pancreatitis without necrosis or infection Code(s): K85.90 - Acute pancreatitis without necrosis or infection, unspecified Status: Acute Assessment and Plan: findings seem consistent - abdominal pain, nausea/vomiting and results of CT abd/pelvis lipase better but still elevated supportive therapy with bowel rest and NPO status IV hydration pain control (6) Lethargy: Code(s): R53.83 - Other fatigue Status: Acute Assessment and Plan: due to pain medications versus MARNI/ARF versus both or something else possible CO2 retention no with myoclonic jerking movement without sedation Neurology consulted (7) Hypertension: Qualifiers: Hypertension type: essential hypertension Qualified Code(s): I10 - Essential (primary) hypertension Code(s): I10 - Essential (primary) hypertension Status: Chronic Assessment and Plan: relatively stable hemodynamics follow trend (8) DM2 (diabetes mellitus, type 2): Qualifiers: Diabetes mellitus complication status: without complication Diabetes mellitus shelter insulin use: without terminal press operator use Qualified Code(s): E11.9 - Type 2 diabetes mellitus without complications Code(s): E11.9 - Type 2 diabetes mellitus without complications Status: Acute Assessment and Plan: follow accuchecks on SSI Will continue to follow. Subjective Date/time seen: 12/01/20 12:46 Remains on ventilator support and hemodynamically stable without the need for pressor therapy; completed hypothermia prototol yesterday; noted myoclonic jerking movements whenever sedation is turned off; no other acute issues/events overnight or earlier this AM. Exam Narrative: Exam Narrative: General: ill appearing male intubated Heart: normal S1 and S2; no rub Lungs: coarse breatht sounds throughout Abdomen: soft, hypoactive positive bowel sounds Extremities: no cyanosis or clubbing; no edema Skin: warm and intact Objective Data Vital Signs Vital Signs: Vital Signs Temp Pulse Resp BP Pulse Ox 12/01/20 12:00 37.1 C 93 28 H 166/77 H 99 12/01/20 10:40 86 100 12/01/20 10:00 91 28 H 146/80 H 99 12/01/20 08:58 103 H 27 H 12/01/20 08:35 101 H 99 12/01/20 08:00 37.3 C 103 H 27 H 115/65 99 12/01/20 07:50 103 H 27 H 12/01/20 07:18 103 H 27 H 12/01/20 0
--- NOTE | 2020-12-01 12:46 | P.PNNP_ITS ---
Progress Note: A&P Assessment and Plan (1) MARNI (acute kidney injury): Code(s): N17.9 - Acute kidney failure, unspecified Status: Acute Assessment and Plan: * as noted by trend of labs * suspect prerenal factors and pancreatitis to blame... * suspect another insult with asystole/cardiac arrest yesterday in the form of ATN * still making urine - non-oliguric * follow trend of repeat labs and UOP * no acute need for CRIMINAL RESEARCH SPECIALIST/dialysis at this time but he remains at risk * not opposed to PRN IV diuretics if needed for volume overload (2) Chronic kidney disease, stage 4 (severe): Code(s): N18.4 - Chronic kidney disease, stage 4 (severe) Status: Chronic Assessment and Plan: * baseline creatinine ~ 2.2 - 2.4mg/dl * presumably due to diabetes and hypertension * follows with Dr. Mckeon for CKD management (3) Cardiac arrest: Code(s): I46.9 - Cardiac arrest, cause unspecified Status: Acute Assessment and Plan: * asystole but unclear what potentiated it * ROSC after 14 minutes so there is a concern for anoxic brain injury * s/p hypothermia protocol (4) Acute respiratory failure: Code(s): J96.00 - Acute respiratory failure, unspecified whether with hypoxia or hype rcapnia Status: Acute Assessment and Plan: * on mechanical ventilation * possible aspiration? * continue ventilator support (5) Acute pancreatitis: Qualifiers: Acute pancreatitis complication: unspecified Pancreatitis type: idiopathic Qualified Code(s): K85.00 - Idiopathic acute pancreatitis without necrosis or infection Code(s): K85.90 - Acute pancreatitis without necrosis or infection, unspecified Status: Acute Assessment and Plan: * findings seem consistent - abdominal pain, nausea/vomiting and results of CT abd/pelvis * lipase better but still elevated * supportive therapy with bowel rest and NPO status * IV hydration * pain control (6) Lethargy: Code(s): R53.83 - Other fatigue Status: Acute Assessment and Plan: * due to pain medications versus MARNI/ARF versus both or something else * possible CO2 retention * no with myoclonic jerking movement without sedation * Neurology consulted (7) Hypertension: Qualifiers: Hypertension type: essential hypertension Qualified Code(s): I10 - Essential (primary) hypertension Code(s): I10 - Essential (primary) hypertension Status: Chronic Assessment and Plan: * relatively stable hemodynamics * follow trend (8) DM2 (diabetes mellitus, type 2): Qualifiers: Diabetes mellitus complication status: without complication Diabetes mellitus long distance operator insulin use: without mcc use Qualified Code(s): E11.9 - Type 2 diabetes mellitus without complications Code(s): E11.9 - Type 2 diabetes mellitus without complications Status: Acute Assessment and Plan: * follow accuchecks * on SSI Will continue to follow. Subjective Date/time seen: 12/01/20 12:46 Remains on ventilator support and hemodynamically stable without the need for pressor therapy; completed hypothermia prototol yesterday; noted myoclonic jerking movements whenever sedation is turned off; no other acute issues/events overnight or earlier this AM. Exam Narrative: Exam Narrative: General: ill appearing male intubated Heart: normal S1 and S2; no rub Lungs: coarse breatht sounds throughout Abdomen: soft, hypoactive positive bowel sound
--- NOTE | 2020-12-01 13:14 | PM.IMPN ---
Progress Note: A&P Assessment and Plan (1) Acute pancreatitis: Qualifiers: Acute pancreatitis complication: unspecified Pancreatitis type: idiopathic Qualified Code(s): K85.00 - Idiopathic acute pancreatitis without necrosis or infection Code(s): K85.90 - Acute pancreatitis without necrosis or infection, unspecified Status: Acute Assessment and Plan: Patient presented to outside hospital with abdominal pain, nausea/vomiting; CT abd/pelvis demonstrated evidence consistent with acute interstitial pancreatitis. Lipase improved nicely from 18,416 to 450 11/30 with improvement and flatus 11/28 started clears. Continue supportive care with IV hydration, pain control, antiemetics. Avoid narcotics due to lethargy early in hospitalization gallstone probable etiology , non drinker tube feedings started today (2) Cholelithiasis: Qualifiers: Cholelithiasis location: other site Biliary obstruction: without biliary obstruction Qualified Code(s): K80.80 - Other cholelithiasis without obstruction Code(s): K80.20 - Calculus of gallbladder without cholecystitis without obstruction Status: Acute Assessment and Plan: A gallstone in the gallbladder is noted on CT. Bilirubin and LFTs are within normal limits thus no biliary obstruction but still could be etiology of pancreatitis (3) Acute on chronic kidney failure: Qualifiers: Acute renal failure type: unspecified Chronic kidney disease stage: unspecified stage Qualified Code(s): N17.9 - Acute kidney failure, unspecified; N18.9 - Chronic kidney disease, unspecified Code(s): N17.9 - Acute kidney failure, unspecified; N18.9 - Chronic kidney disease, unspecified Status: Acute Assessment and Plan: He is a patient of Dr Mckeon in [place]. He is not on dialysis. He was unsure what his baseline creatinine is, requested to obtain records for reference. Cr increased up to 7.6 11/30 and remains the same this morning with bun up to 90. . May be related to poor oral intake at home and prerenal azotemia from pancreatitis renal ultrasound no obstruction (4) Hypertension: Qualifiers: Hypertension type: essential hypertension Qualified Code(s): I10 - Essential (primary) hypertension Code(s): I10 - Essential (primary) hypertension Status: Chronic Assessment and Plan: Some elevated BPs 11/27 likely secondary to pain and missed medications, now better controlled this AM last 142/76. . He was recently taken off of amlodipine due to LE swelling and started on losartan in last 1 mo. Monitor BP and adjust treatment as needed. (5) DM2 (diabetes mellitus, type 2): Qualifiers: Diabetes mellitus mcc insulin use: without mcc use Diabetes mellitus complication status: without complication Qualified Code(s): E11.9 - Type 2 diabetes mellitus without complications Code(s): E11.9 - Type 2 diabetes mellitus without complications Status: Acute Assessment and Plan: Hgb A1c is 5.7%. Home metformin held due to worsening renal function. Continue to monitor with accu-cheks and adjust treatment as needed, cover with SSI. (6) Hyperlipidemia: Qualifiers: Hyperlipidemia type: unspecified Qualified Code(s): E78.5 - Hyperlipidemia, unspecified Code(s): E78.5 - Hyperlipidemia, unspecified Status: Chronic Assessment and Plan: Home medications may be resumed once he is tolerating a diet better. (7) Gout: Qualifiers: Gout site: unspecified site Gout etiology: unspecified cause Chronicity: chronic Presence of tophus: without tophus Qualified Code(s): M1A.9XX0 - Chronic go
[2020-12-01] MEDS: hydrALAZINE HCL 20 MG/ML VIAL 10 MG IV PUSH (16:36)
[2020-12-01 17:57] LABS: Glucose Point of Care 107 (65-105)
[2020-12-01 18:37] LABS: Myoglobin, Urine 815 mcg/L (<28)
[2020-12-01] MEDS: ENOXAPARIN 30 MG/0.3 ML SYRINGE SUB-Q (19:49)
[2020-12-01] MEDS: PROPOFOL IV EMULSION 100 ML 20 MG IV CONT (21:21)
[2020-12-01 23:27] LABS: Glucose Point of Care 151 (65-105)
[2020-12-02] VITALS (17 sets, daily range): BP systolic 120–143; BP diastolic 62–70; PULSE 80–100; RESP 20–28; TEMP 37.4–37.7; O2SAT 96–97
[2020-12-02] MEDS: PROPOFOL IV EMULSION 100 ML 16.67 MG IV CONT (02:07)
[2020-12-02 04:39] LABS: Alveolar/Arterial O2 Gradient 93.3 mmHg; Base Excess ABG -0.3 mEq/l (+/-2.0); Carboxyhemoglobin 0.3 % THb (0-2.0); Fractional Inspired Oxygen 30 %; HCO3 ABG 22.5 mEq/l (22.0-26.0); Methemoglobin ABG 0.2 %THb (0-1.5); Oxygen Saturation ABG 97.3 % (95.0-100.0); Oxyhemoglobin 94.5 % THb (90.0-100.0); PCO2 ABG 29.7 mmHg (35.0-45.0); PO2 ABG 85.7 mmHg (80.0-100.0); PO2 FiO2 Ratio Arterial Blood 2.86 %; Total Hemoglobin 8.9 g/dL (12.0-18.0); pH ABG 7.497 (7.350-7.450)
[2020-12-02 04:40] LABS: Arterial Blood Gas PEEP 8 cmH2O; Arterial Blood Gas Vent Mode ASSIST CONTROL; Arterial Blood Gas Ventilator rate 28 /MIN; Device VENTILATOR; Modified Allen's Test Unable to perform; Site Drawn RIGHT RADIAL
[2020-12-02 04:41] LABS: Arterial Blood Gas Tidal Volume 450 ml
[2020-12-02] MEDS: CENTRAL LINE FLUSH 10 ML IV PUSH ×2 (06:17→13:51)
[2020-12-02 06:33] LABS: Hematocrit 25.3 % (42.0-52.0); Hemoglobin 8.4 g/dL (14.0-18.0); Mean Corpuscular HGB Conc 33.2 g/dl (32-36); Mean Corpuscular Hemoglobin 31.1 pg (26-34); Mean Corpuscular Volume 93.7 fl (80-100); Mean Platelet Volume 10.1 fl (7.4-10.4); Platelet Count Result 168 k/mm3 (150-375); Red Cell Distribution Width 14.2 % (11.5-14.5); White Blood Count 6.2 K/mm3 (4.5-10.0)
[2020-12-02 06:54] LABS: Lactic Acid Reflex 0.6 mmol/L (0.7-2.1)
[2020-12-02 06:55] LABS: Alanine Aminotransferase 40 U/L (4-50); Albumin Level 2.5 g/dL (3.5-5.1); Alkaline Phosphatase 57 U/L (38-126); Anion Gap 9 mmol/L (8-16); Aspartate Amino Transferase 29 U/L (17-59); Bilirubin,Total 0.5 mg/dL (0.2-1.3); Blood Urea Nitrogen 100 mg/dL (9-20); Calcium 8.1 mg/dL (8.4-10.2); Carbon Dioxide 24 mmol/L (22-30); Chloride 106 mmol/L (98-107); Glucose 189 mg/dL (75-110); Magnesium 2.5 mg/dL (1.6-2.3); Potassium 3.7 mmol/L (3.4-5.0); Sodium 139 mmol/L (137-145)
[2020-12-02 07:03] LABS: Estimated CRCL calculation 10 ml/min; Estimated Glomerular Filt Rate 6
[2020-12-02] MEDS: PROPOFOL IV EMULSION 100 ML 13.33 MG IV CONT (07:55)
[2020-12-02] MEDS: levETIRAcetam 500MG/NACL 100ML 500 MG/100 ML BAG 400 MG IVPB (07:56)
[2020-12-02] MEDS: FAMOTIDINE 20 MG/2 ML VIAL IV PUSH (07:59)
[2020-12-02] MEDS: ASPIRIN 325 MG TABLET PO (07:59)
[2020-12-02] MEDS: SODIUM BICARBONATE TAB 650 MG TABLET 1300 MG PO (08:00)
--- NOTE | 2020-12-02 11:18 | PCDIET ---
Nutrition Follow-Up Complete: Nutrition Diagnosis: Inadequate oral intake related to oral intubation as evidenced by NPO status. Nutrition Goal: Patient to meet estimated nutritional needs. Goal met. Patient receiving Nepro at 40mL/hr goal rate which provides 1584kcal and 71g protein over 22 hours/day. Patient tolerating tube feedings without issues, per nursing. Last recorded weight is 115 kg which is increased from last review. Bowel Motility: BM x 1 today. Labs Reviewed: Hgb (8.4), Hct (25.3), Glu (189), BUN (100), Cr (8.3), Alb (2.5), Diana Ca (9.3) Meds Noted: Propofol (rate of 13.33mL/hr provides 352kcal per day), Pepcid, Zosyn, Hydralazine, Sodium Bicarbonate Additional Notes: No skin issues, per RN. Plan for EEG today. Will continue to monitor with same goal. Nutrition Monitoring and Evaluation: Follow up every Wednesday/Wednesday.
--- NOTE | 2020-12-02 11:22 | PM.PNCARD ---
Progress Note: A&P Additional Plan 70-year-old man who had a arrest on the floor probably a aspiration of and versus respiratory event after which he is intubated in the ICU patient remains unresponsive on a ventilator support. EEG is being done at the time of this dictation. No cardiac/hemodynamic instability. Prognosis appears to be poor Tadeo Goodwin MD [facility] Subjective Date/time seen: Date of service: 12/02/20 11:22 Interval history: 70-year-old admitted for pancreatitis. Status post arrest: Likely pulmonary or aspiration Date of service 12/02/2020: Patient essentially unresponsive intubated off of sedation in the ICU. Now undergoing EEG Exam Const: Other: Overweight intubated white male ICU room 7. He is moving to painful stimuli HENMT: Mouth: Yes dry mucous membranes Eyes: Sclera: sclerae normal Pupils: Equal, round and reactive pupils present Neck: Neck: no JVD Other: Carotid pulses are adequate no bruits are evident Resp: Other: Breath sounds so show some central rhonchi bilaterally no rales no wheezing Cardio: Rate: regular rate Other: Very soft systolic murmur that does not radiate from the left sternal border GI: Inspection: normal to inspection Neuro: Cranial nerves: Yes Equal, round and reactive pupils present Other: Unresponsive Extrem: Other: Adequate peripheral perfusion Objective Data Vital Signs Vital Signs: Vital Signs - 24 hr 12/01/20 12:00 12/01/20 13:52 12/01/20 14:00 Temperature 37.1 C Pulse Rate 93 96 88 Respiratory Rate 28 H 28 H Blood Pressure 166/77 H 157/65 H Pulse Oximetry 99 99 99 12/01/20 15:05 12/01/20 16:00 12/01/20 16:51 Temperature 37.5 C Pulse Rate 88 90 103 H Respiratory Rate 28 H 28 H Blood Pressure 172/89 H Pulse Oximetry 99 99 12/01/20 18:00 12/01/20 18:32 12/01/20 20:00 Temperature 37.1 C Pulse Rate 108 H 108 H 99 Respiratory Rate 28 H 28 H 28 H Blood Pressure 144/88 H 116/70 Pulse Oximetry 95 97 12/01/20 20:20 12/01/20 22:00 12/01/20 23:20 Temperature Pulse Rate 102 H 102 H 93 Respiratory Rate 28 H Blood Pressure 138/74 Pulse Oximetry 96 98 97 12/02/20 00:00 12/02/20 02:00 12/02/20 04:00 Temperature 37.5 C 37.4 C Pulse Rate 96 98 100 Respiratory Rate 28 H 28 H 28 H Blood Pressure 120/65 133/69 140/63 Pulse Oximetry 97 97 96 12/02/20 04:44 12/02/20 06:00 12/02/20 07:44 Temperature 37.7 C H Pulse Rate 90 93 91 Respiratory Rate 28 H 28 H Blood Pressure 143/65 H 126/63 Pulse Oximetry 96 96 96 12/02/20 07:51 12/02/20 07:55 12/02/20 08:00 Temperature Pulse Rate 92 94 94 Respiratory Rate 28 H 28 H Blood Pressure Pulse Oximetry 96 12/02/20 09:05 12/02/20 10:00 12/02/20 11:13 Temperature Pulse Rate 86 91 94 Respiratory Rate 20 26 H Blood Pressure 136/62 Pulse Oximetry 97 97 96 Intake/Output Intake/Output: Intake & Output 11/29/20 11/30/20 12/01/20 12/02/20 23:59 23:59 23:59 23:59 Intake Total 1200 1700 1112 914 Output Total 1100 1300 1250 525 Balance 100 400 -138 389 Meds/Results Medications: Active Medications Generic Name Dose Route Start Last Admin Trade Name Freq PRN Reason Stop Dose Admin Acetaminophen 650 mg 11/26/20 16:15 11/28/20 09:18 Acetaminophen 325 Mg Tablet PO 650 mg Q4H PRN Administration Mild Pain (1-3) or Fever Allopurinol 100 mg 11/26/20 21:00 11/29/20 10:29 Allopurinol 100 Mg Tablet PO Not Given Q12HR GOMEZ Aspirin 325 mg 11/29/20 13:40 12/02/20 07:59 Aspirin 325 Mg Tablet PO 325 mg DAILY@0800 GOMEZ Administration Carvedilol 12.5 mg 11/26/20 21:00 11/29/20 10:30 Carvedilol 12.5 Mg Tablet PO Not Given Q12HR GOMEZ Dextrose 12.5 gm 11/26/20 16:18 11/30/20 23:33 Dextrose 50% 25 Gm/50 Ml Syringe IV PUSH 12.5 gm PRN PRN Administration Hypoglycemia Protocol Enoxaparin Sodium 30 mg 11/28/20 21:00 12/01/20 19:49 Enoxaparin 30 Mg/0.3 Ml Syringe SUB-Q 3
--- NOTE | 2020-12-02 11:32 | P.PNNP_ITS ---
Progress Note: A&P Assessment and Plan (1) MARNI (acute kidney injury): Code(s): N17.9 - Acute kidney failure, unspecified Status: Acute Assessment and Plan: * as noted by trend of labs * suspect prerenal factors and pancreatitis to blame... * suspect another insult with asystole/cardiac arrest yesterday in the form of ATN * still making urine. He made about a 1000cc. * Creatinine is a little bit higher. * No sighns of uremia. (2) Chronic kidney disease, stage 4 (severe): Code(s): N18.4 - Chronic kidney disease, stage 4 (severe) Status: Chronic Assessment and Plan: * baseline creatinine ~ 2.2 - 2.4mg/dl * presumably due to diabetes and hypertension * follows with Dr. Mckeon for CKD management (3) Cardiac arrest: Code(s): I46.9 - Cardiac arrest, cause unspecified Status: Acute Assessment and Plan: * asystole but unclear what potentiated it * ROSC after 14 minutes so there is a concern for anoxic brain injury * s/p hypothermia protocol * Stopping the sedatives. Will get an EEG. * Discussed with Dr. Burnham (4) Acute respiratory failure: Code(s): J96.00 - Acute respiratory failure, unspecified whether with hypoxia or hypercapnia Status: Acute Assessment and Plan: * on mechanical ventilation * possible aspiration? * continue ventilator support (5) Acute pancreatitis: Qualifiers: Acute pancreatitis complication: unspecified Pancreatitis type: idiopathic Qualified Code(s): K85.00 - Idiopathic acute pancreatitis without necrosis or infection Code(s): K85.90 - Acute pancreatitis without necrosis or infection, unspecified Status: Acute Assessment and Plan: * findings seem consistent - abdominal pain, nausea/vomiting and results of CT abd/pelvis * lipase better but still elevated * supportive therapy with bowel rest and NPO status * IV hydration * pain control (6) Lethargy: Code(s): R53.83 - Other fatigue Status: Acute Assessment and Plan: * due to pain medications versus MARNI/ARF versus both or something else * possible CO2 retention * no with myoclonic jerking movement without sedation * Neurology consulted (7) Hypertension: Qualifiers: Hypertension type: essential hypertension Qualified Code(s): I10 - Essential (primary) hypertension Code(s): I10 - Essential (primary) hypertension Status: Chronic Assessment and Plan: * relatively stable hemodynamics * follow trend (8) DM2 (diabetes mellitus, type 2): Qualifiers: Diabetes mellitus chcf insulin use: without chcf use Diabetes mellitus complication status: without complication Qualified Code(s): E11.9 - Type 2 diabetes mellitus without complications Code(s): E11.9 - Type 2 diabetes mellitus without complications Status: Acute Assessment and Plan: * follow accuchecks * on SSI Subjective Date/time seen: 12/02/20 11:32 Interval history: Patient is on the ventilator. He is not interactive. Review of Systems Review of Systems: ROS unobtainable: Yes unobtainable due to medical condition Exam Narrative: Exam Narrative: General: ill appearing male intubated and on the ventilator Heart: normal S1 and S2; no rub Lungs: coarse breath sounds throughout Abdomen: soft, hypoactive positive bowel sounds Extremities: 1+ presacral edema Skin: No rash
--- NOTE | 2020-12-02 11:32 | PM.PNNEP ---
Progress Note: A&P Assessment and Plan (1) MARNI (acute kidney injury): Code(s): N17.9 - Acute kidney failure, unspecified Status: Acute Assessment and Plan: as noted by trend of labs suspect prerenal factors and pancreatitis to blame... suspect another insult with asystole/cardiac arrest yesterday in the form of ATN still making urine. He made about a 1000cc. Creatinine is a little bit higher. No sighns of uremia. (2) Chronic kidney disease, stage 4 (severe): Code(s): N18.4 - Chronic kidney disease, stage 4 (severe) Status: Chronic Assessment and Plan: baseline creatinine ~ 2.2 - 2.4mg/dl presumably due to diabetes and hypertension follows with Dr. Mckeon for CKD management (3) Cardiac arrest: Code(s): I46.9 - Cardiac arrest, cause unspecified Status: Acute Assessment and Plan: asystole but unclear what potentiated it ROSC after 14 minutes so there is a concern for anoxic brain injury s/p hypothermia protocol Stopping the sedatives. Will get an EEG. Discussed with Dr. Burnham (4) Acute respiratory failure: Code(s): J96.00 - Acute respiratory failure, unspecified whether with hypoxia or hypercapnia Status: Acute Assessment and Plan: on mechanical ventilation possible aspiration? continue ventilator support (5) Acute pancreatitis: Qualifiers: Acute pancreatitis complication: unspecified Pancreatitis type: idiopathic Qualified Code(s): K85.00 - Idiopathic acute pancreatitis without necrosis or infection Code(s): K85.90 - Acute pancreatitis without necrosis or infection, unspecified Status: Acute Assessment and Plan: findings seem consistent - abdominal pain, nausea/vomiting and results of CT abd/pelvis lipase better but still elevated supportive therapy with bowel rest and NPO status IV hydration pain control (6) Lethargy: Code(s): R53.83 - Other fatigue Status: Acute Assessment and Plan: due to pain medications versus MARNI/ARF versus both or something else possible CO2 retention no with myoclonic jerking movement without sedation Neurology consulted (7) Hypertension: Qualifiers: Hypertension type: essential hypertension Qualified Code(s): I10 - Essential (primary) hypertension Code(s): I10 - Essential (primary) hypertension Status: Chronic Assessment and Plan: relatively stable hemodynamics follow trend (8) DM2 (diabetes mellitus, type 2): Qualifiers: Diabetes mellitus snf insulin use: without superintendent terminal use Diabetes mellitus complication status: without complication Qualified Code(s): E11.9 - Type 2 diabetes mellitus without complications Code(s): E11.9 - Type 2 diabetes mellitus without complications Status: Acute Assessment and Plan: follow accuchecks on SSI Subjective Date/time seen: 12/02/20 11:32 Interval history: Patient is on the ventilator. He is not interactive. Review of Systems Review of Systems: ROS unobtainable: Yes unobtainable due to medical condition Exam Narrative: Exam Narrative: General: ill appearing male intubated and on the ventilator Heart: normal S1 and S2; no rub Lungs: coarse breath sounds throughout Abdomen: soft, hypoactive positive bowel sounds Extremities: 1+ presacral edema Skin: No rash Objective Data Vital Signs Vital Signs: Vital Signs - 24 hr 12/01/20 12:00 12/01/20 13:52 12/01/20 14:00 Temperature 37.1 C Pulse Rate 93 96 88 Respiratory Rate 28 H 28 H Blood Pressure 166/77 H 157/65 H Pulse Oximetry 99 99 99 12/01/20 15:05 12/01/20 16:00 12/01/20 16:51 Temperature 37.5 C Pulse Rate 88 90 103 H Respiratory Rate 28 H 28 H Blood Pressure 172/89 H Pulse Oximetry 99 99 12/01/20 18:00 12/01/20 18:32 12/01/20 20:00 Temperature 37.1 C Pulse Rate 108 H 108 H 99 Respi
--- NOTE | 2020-12-02 12:10 | WPDNEUROLOGY ---
Neurology EEG Report General Information Date of Study: 12/02/20 TEST EEG DIAGNOSIS anoxic brain injury CONDITION OF RECORDING unresponsive EEG NUMBER 12/02/2020 CLINICAL HISTORY patient was in hospital for abdominal pain when he coded and was down for some time, remains unresponsive and at present he is on propofol. EEG DESCRIPTION old record consists of medium to high voltage sharp and slow wave transient followed by 2 to 3 seconds of no activity or impaired activity throughout the trace at times EKG artifact is seen on the EEG and also triphasic waves are noted throughout the tracing. IMPRESSION Abnormal record with the presence of abnormal cortical activity admixed with the triphasic waves suggestive of underlying organic or metabolic encephalopathy or severe anoxic insult clinical correlation recommended
[2020-12-02 12:26] LABS: Glucose Point of Care 167 (65-105)
--- NOTE | 2020-12-02 13:00 | P.PNINT_ITS ---
Progress Note: A&P Assessment and Plan (1) Cardiac arrest: Code(s): I46.9 - Cardiac arrest, cause unspecified Status: Acute Assessment and Plan: Patient was in asystole. Unclear etiology at this time large amount of secretions were seen during intubation in the posterior pharynx and patient may have aspirated leading to hypoxia. Patient had been drowsy and obtunded and may became hypercarbic leading to wor sening of acidosis compounded by his acute renal failure which led to cardiac arrest. Or this could be a primary cardiac event as patient has all the risk factors for coronary artery disease including diabetes hyperlipidemia and hypertension Sepsis Serial troponins has trended down now EKG did not show any ST elevation and showed sinus rhythm with nonspecific T- wave changes CT head chest abdomen was done and reviewed Patient was seen by Cardiology and shoe repairer helper had no other specific recommendations at this time Bilateral lower extremity Dopplers were negative for DVT and echocardiogram did not show any RV dilation or failure Hemodynamically stable at this time (2) Sepsis: Code(s): A41.9 - Sepsis, unspecified organism Status: Acute Assessment and Plan: Could be secondary to pneumonia question aspiration or pancreatitis Patient overall volume overloaded as evidence by bilateral pitting edema pulmonary edema Patient was given 1 fluid bolus during code Off of IV fluids now Continue Zosyn empirically Negative till date blood cultures (3) Acute respiratory failure: Code(s): J96.00 - Acute respiratory failure, unspecified whether with hypoxia or hypercapnia Status: Acute Assessment and Plan: Acute Respiratory failure secondary to cardiac arrest, pulmonary edema, pneumonia, ? Aspiration Continue full mechanical ventilation support to prevent hypoxemia/hypercarbia and end organ damage. ABG and CT chest reviewed FiO2 decreased to 40% and respiratory rate increased to 28 Low tidal volume ventilation strategy to prevent volutrauma Bronchodilators Weaning will depend on neurological improvement (4) Anoxic brain injury: Code(s): G93.1 - Anoxic brain damage, not elsewhere classified Status: Acute Assessment and Plan: Per nurse patient was drowsy on night prior to his cardiac arrest and he did receive Ativan and Zyprexa Post cardiac arrest patient has been unresponsive and now exhibiting what appears to be signs of anoxic brain injury. His down time was close to 14-15 minutes but may have been longer prior to calling Code. Head CT done did not show acute change Patient completed TTM protocol Continue propofol for now. Will start empiric Keppra until seizures or rule out on EEG although this appears more like myoclonic jerking Consult neurology. I will order EEG Re-evaluate in 24 hours which would be day 3 post arrest and a better prognostic marker Continue aggressive treatment of fever (5) Acute on chronic kidney failure: Qualifiers: Acute renal failure type: unspecified Chronic kidney disease stage: unspecified stage Qualified Code(s): N17.9 - Acute kidney failure, unspecified; N18.9 - Chronic kidney disease, unspecified Code(s): N17.9 - Acute kidney failure, unspecified; N18.9 - Chronic kidney disease, unspecified Status: Acute Assessment and Plan: Patient had chronic kidney disease stage 4 and was admitted with acute renal failure Nephrology is following Renal ultrasound was done and showed medical renal disease His urine output Had been adequate prior to and following this event Monitor candi
--- NOTE | 2020-12-02 17:17 | PM.IMPN ---
Progress Note: A&P Assessment and Plan (1) Acute pancreatitis: Qualifiers: Acute pancreatitis complication: unspecified Pancreatitis type: idiopathic Qualified Code(s): K85.00 - Idiopathic acute pancreatitis without necrosis or infection Code(s): K85.90 - Acute pancreatitis without necrosis or infection, unspecified Status: Acute Assessment and Plan: Patient presented to outside hospital with abdominal pain, nausea/vomiting; CT abd/pelvis demonstrated evidence consistent with acute interstitial pancreatitis. Lipase improved nicely from 18,416 to 450 11/30 with improvement and flatus 11/28 started clears. Continue supportive care with IV hydration, pain control, antiemetics. Avoid narcotics due to lethargy early in hospitalization gallstone probable etiology , non drinker tube feedings started 12/01 (2) Cholelithiasis: Qualifiers: Cholelithiasis location: other site Biliary obstruction: without biliary obstruction Qualified Code(s): K80.80 - Other cholelithiasis without obstruction Code(s): K80.20 - Calculus of gallbladder without cholecystitis without obstruction Status: Acute Assessment and Plan: A gallstone in the gallbladder is noted on CT. Bilirubin and LFTs are within normal limits thus no biliary obstruction but still could be etiology of pancreatitis (3) Acute on chronic kidney failure: Qualifiers: Acute renal failure type: unspecified Chronic kidney disease stage: unspecified stage Qualified Code(s): N17.9 - Acute kidney failure, unspecified; N18.9 - Chronic kidney disease, unspecified Code(s): N17.9 - Acute kidney failure, unspecified; N18.9 - Chronic kidney disease, unspecified Status: Acute Assessment and Plan: He is a patient of Dr Mckeon in [place]. He is not on dialysis. He was unsure what his baseline creatinine is, requested to obtain records for reference. Cr increased up to 8.3 today and remains the same this morning with bun up to 100. . May be related to poor oral intake at home and prerenal azotemia from pancreatitis renal ultrasound no obstruction (4) Hypertension: Qualifiers: Hypertension type: essential hypertension Qualified Code(s): I10 - Essential (primary) hypertension Code(s): I10 - Essential (primary) hypertension Status: Chronic Assessment and Plan: Some elevated BPs 11/27 likely secondary to pain and missed medications, now better controlled this AM last 126/70. . He was recently taken off of amlodipine due to LE swelling and started on losartan in last 1 mo. Monitor BP and adjust treatment as needed. 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 Home metformin held due to worsening renal function. Continue to monitor with accu-cheks and adjust treatment as needed, cover with SSI. (6) Hyperlipidemia: Qualifiers: Hyperlipidemia type: unspecified Qualified Code(s): E78.5 - Hyperlipidemia, unspecified Code(s): E78.5 - Hyperlipidemia, unspecified Status: Chronic Assessment and Plan: Home medications may be resumed once he is tolerating a diet better. (7) Gout: Qualifiers: Gout site: unspecified site Gout etiology: unspecified cause Chronicity: chronic Presence of tophus: without tophus Qualified Code(s): M1A.9XX0 - Chronic g
--- NOTE | 2020-12-02 17:29 | PM.DDS ---
Discharge Sum: Prov Provider Primary care physician: Ankit Washburn DO Admitting provider: Matthew Burnham MD Consults: 11/26/20 Wound/ET Consult Routine Reason for Consult:: Patient had left 3rd toenail removed 11/25/2020 at [facility], states it needs to be soaked in epsom salt, betadine bandaged and the patient is on antibiotics. 11/27/20 Consult to Physician Routine Comment: Spoke with Dr Lehman @ 1025 (,[place]) Consulting Provider: Minal Lehman call center professional/MD group to consult: Nephrology Reason for consultation: Patient of Dr Mckeon with worsening acute on chronic renal failure Has provider been notified: Yes 11/29/20 Consult to Physician Routine Comment: Consulting Provider: Tadeo Goodwin call center professional/MD group to consult: Cardiology Reason for consultation: Cardiac Arrest Has provider been notified: Yes Consult to Physician Routine Comment: Consulting Provider: Christopher Weinberg call center professional/MD group to consult: Dr Weinberg Reason for consultation: CV arrest Has provider been notified: Yes 12/01/20 Consult to Physician Routine Comment: Consulting Provider: Mark Mann call center professional/MD group to consult: Neurology Reason for consultation: Anoxic Brain Injury Has provider been notified: Yes Discharge Sum: Diag Contributing Factors (1) Acute pancreatitis: (2) Cholelithiasis: (3) Acute on chronic kidney failure: (4) Hypertension: (5) DM2 (diabetes mellitus, type 2): (6) Hyperlipidemia: (7) Gout: (8) Adenoma of left adrenal gland: (9) Encephalopathy: (10) Acute respiratory failure: (11) Cardiac arrest: (12) Anoxic brain injury: (13) Acidosis: Discharge Sum: Summary Date and Time Date of admission: 11/27/20 09:39 Date of : 12/02/20 Summary Details: Mr. Pride was a 70-year-old hypertensive male with chronic renal failure stage 3 admitted to the hospital with acute pancreatitis and acute on chronic renal failure. By the his lipase had dropped dramatically and was feeling much better. With flatus clear liquids were started. Late that evening he became very confused and agitated which persisted into the morning of the . Shortly after I saw him that a.m. a code blue was called and after approximately 20 minutes of CPR and 5 rounds of epi with bicarb and intubation ,ROSC returned. His transferred to the ICU for cooling protocol and sedation. Etiology of the cardiac arrest was never known A.m. of the he was stable on rounds on the ventilator but was not showing catholic of brain activity. And myoclonic jerks. Noncontrast CT scan failed to reveal any abnormalities. Just before 3:00 p.m. on patient developed ventricular fibrillation which did not respond to cardiogenic shock, CPR, or epinephrine x2 rounds. Patient's was called and with his worsening renal status and poor prognosis she elected to discontinue resuscitation efforts. Patient was pronounced at approximately 3:08 p.m. Additional Data Attending physician: Jemima Loomis, PAC
[2020-12-03 14:24] LABS: Chloride Rand Ur 37 mmol/L (32-290); Chloride/Creatinine Rand Ur 45 (23-275); Creatinine Random Urine 82 mg/dL (20-320)
--- NOTE | 2020-12-19 14:16 | PDCODEBLUE ---
Code Blue Note Code Blue Note Time Arrived at Code Blue: 12/02/2020 at 3:00 p.m. Initial Rhythm on Arrival: Pulseless ventricular fibrillation Airway Management: Initiated bagging pt on arrival (Patient already had an endotracheal tube) Chest Compressions: Initiated upon arrival Result of Code Blue: Pt Cardiac Rhythm Post Code: Asystole Code Blue Summary: However through the code blue patient's elected to discontinue resuscitation efforts. Was pronounced at 3:08 p.m. on 12/02/2020
== END 2020-12-02 15:08 | disposition expired | DRG 438 ==
LOC: ANH2MED 11-27 07:18 → ANHICU 11-29 12:03 → ANH2MED 12-05 13:00 → ANHICU 12-05 13:00
PROVIDERS: Internal Medicine; Internal Medicine Nephrology; Physician Assistant; Admitting Provider Internal Medicine; PCP Family Medicine; Visit Provider Internal Medicine
DX: K85.00 Idiopathic acute pancreatitis without necrosis or infection (principal); A41.9 Sepsis, unspecified organism; J96.00 Acute respiratory failure, unspecified whether with hypoxia or hypercapnia; N18.4 Chronic kidney disease, stage 4 (severe); E87.2 Acidosis; N17.9 Acute kidney failure, unspecified; G93.1 Anoxic brain damage, not elsewhere classified; G93.40 Encephalopathy, unspecified; I46.9 Cardiac arrest, cause unspecified; I49.01 Ventricular fibrillation; E11.22 Type 2 diabetes mellitus with diabetic chronic kidney disease; I12.9 Hypertensive chronic kidney disease with stage 1 through stage 4 chronic kidney disease, or unspecified chronic kidney disease; K80.80 Other cholelithiasis without obstruction; D35.02 Benign neoplasm of left adrenal gland; R53.83 Other fatigue; E78.5 Hyperlipidemia, unspecified; K21.9 Gastro-esophageal reflux disease without esophagitis; M1A.9XX0 Chronic gout, unspecified, without tophus (tophi); D72.829 Elevated white blood cell count, unspecified; Z79.82 Long term (current) use of aspirin; Z79.84 Long term (current) use of oral hypoglycemic drugs; Z87.891 Personal history of nicotine dependence
CPT/HCPCS: 36415; 36600; 70450; 71045; 71250; 74176; 76775; 80053; 80069; 80074; 81001; 82140; 82375; 82436; 82570; 82805; 83036; 83050; 83605; 83690; 83735; 83874; 84100; 84300; 84478; 84484; 85025; 85027; 85999; 86706; 87040; 87086; 92950; 93005; 93306; 93970; 94002; 94003; 95816; 96361; 96365; 96375; 96376; A9270; C1751; C8929; G0378; G0379; J0171; J0360; J1170; J1650; J1953; J2060; J2270; J2310; J2405; J2543; J2704; J3475; J7030; J7042; J7070; J7120; Q9957